=== PATIENT | male | born 1935 | race Caucasian/White ===

== ENCOUNTER → 2016-07-20 | Outpatient (CLI) | payer MEDICARE ==
--- OUTSIDE RECORDS SUMMARY | 2016-07-20 08:45 | XMS REPORT | Continuity of Care Document ---
Author Author [facility] Organization [facility] Address Unknown Phone Unavailable Care Team Providers Care Allocations Clerk Name Role Phone CHARLES CHARLTON DO PCP Insurance Providers Payer Name Policy Number Subscriber Name Relationship Wps Medicare [id number] Elina Leggett 18 Self / Same As Patient Blue Cross [facility] Supp [id number] Elina Leggett 19 Self / Same As Patient Problems No known problems or medical conditions. Medications No known medications. Social History Social History Problem Response Recorded Date/Time Recent Foreign Travel No 06/04/2014 7:49am Hospital Discharge Instructions No hospital discharge instructions. Plan of Care No plan of care. Functional Status No functional status results. Allergies, Adverse Reactions, Alerts No known allergies. Immunizations No immunization records. Vital Signs No known vital signs results. Results No known relevant diagnostic tests, laboratory data and/or discharge summary. Procedures No known history of procedures. Encounters Encounter Location Date/Time Discharged Recurring Via [facility] 07/15/14 2:16pm
--- OUTSIDE RECORDS SUMMARY | 2016-07-20 09:12 | XMS REPORT | Continuity of Care Document ---
Author Author [facility] Organization [facility] Address Unknown Phone Unavailable Care Team Providers Care Slate Picker Name Role Phone CHARLES CHARLTON DO PCP Insurance Providers Payer Name Policy Number Subscriber Name Relationship Wps Medicare [id number] Elina Leggett 19 Self / Same As Patient Blue Cross [facility] Supp [id number] Elina Leggett 19 Self / Same As [...] Encounters Encounter Location Date/Time Discharged Recurring Via [facility] 07/15/14 2:16pm
== END ==
LOC: ONC 08:42 → EDSTATUS 09:06 → LAB 09:09
PROVIDERS: ATTEND Radiology Radiation Oncology
DX: C61 Malignant neoplasm of prostate (principal)
CPT/HCPCS: 36415; 84153

== ENCOUNTER → 2017-01-17 | Outpatient (CLI) | payer MEDICARE | END | disposition home or self-care (01) | LOC: ONC 08:43 | PROVIDERS: ATTEND Radiology Radiation Oncology | DX: C61 Malignant neoplasm of prostate (principal) | CPT/HCPCS: 36415; 84153 ==

== ENCOUNTER 2020-05-31 12:51 | Emergency (ER) | payer MEDICARE ==
[~2020-05-31] VITALS: Ht 172 cm; Wt 54.4 kg
--- NOTE | 2020-05-31 13:53 | ED General ---
General Chief Complaint: Altered Mental Status Stated Complaint: FALL / AMS Nursing Triage Note: PT BROUGHT TO ED BY SON FOR ALTERED MENTAL STATUS X'S 2 WEEKS, WEAKNESS ONSET X'S 2 DAYS. SON REPORTS THE OTHER DAY PT WENT OVER THE SIDE OF HIS BED AND FELL, NO LOC OR LACERATION. SON REPORTS THAT IN THE LAST TWO WEEKS HE HAS BEEN CALLED TO PTS HOME FOR CONFUSION. SON REPORTS "HIS DAYS AND NIGHTS ARE MIXED UP". PT BROUGHT TO ROOM 02 VIA WC. Nursing Sepsis Screen: No Definite Risk Source of Information: Patient Exam Limitations: Other (AMS) History of Present Illness Date Seen by Provider: May 31, 2020 Time Seen by Provider: 13:52 Initial Comments This is a well-appearing 84-year-old male who presents to the ER via POV with his son for fall and altered mental status. Patient states he is unaware of why he is at the hospital at this time. Son states that over the past year he has been having increasing episodes of forgetfulness. However, the past 2 weeks this has significantly worsened. Reports increasing weakness over the past 2 days and decreasing appetite. On he went to lay in bed and fell on the other side. No loss of consciousness, laceration or injuries reported. Son states he has been getting up in the middle of the night, stating they need to get the wheat harvested. Son states that they have completed this several weeks ago. Patient has no physical complaints at this time. Allergies and Home Medications Allergies Coded Allergies: No Known Drug Allergies (Unverified , 05/31/20) Home Medications Cefuroxime Axetil 250 Mg Tablet, 250 MG PO BID Prescribed by: GE AZUL on 05/31/20 1490 Patient Home Medication List Home Medication List Reviewed: Yes Review of Systems Review of Systems Constitutional: no symptoms reported EENTM: no symptoms reported Respiratory: no symptoms reported Cardiovascular: no symptoms reported Gastrointestinal: no symptoms reported Genitourinary: no symptoms reported Musculoskeletal: no symptoms reported Skin: no symptoms reported Psychiatric/Neurological: Other (forgetfulness) Hematologic/Lymphatic: No Symptoms Reported Past Lmezplq-Dcvnwf-Cpqfhk Hx Patient Social History Alcohol Use: Denies Use Recreational Drug Use: No Smoking Status: Never a Smoker Recent Foreign Travel: No Contact w/Someone Who Travel: No Recent Infectious Disease Expo: No Physical Exam Vital Signs Vital Signs - First Documented 05/31/20 18:00 Pulse Ox 97 Capillary Refill : Less Than 3 Seconds Height, Weight, BMI Height: '" Weight: lbs. oz. kg; 18.00 BMI Method: General Appearance: No Apparent Distress, WD/WN Eyes: Bilateral Eye Normal Inspection, Bilateral Eye PERRL, Bilateral Eye EOMI HEENT: PERRL/EOMI, TMs Normal, Normal ENT Inspection, Pharynx Normal Neck: Full Range of Motion, Normal Inspection, Non Tender, Supple Respiratory: Chest Non Tender, Lungs Clear, Normal Breath Sounds, No Accessory Muscle Use, No Respiratory Distress Cardiovascular: Regular Rate, Rhythm, No Murmur, Normal Peripheral Pulses Gastrointestinal: Normal Bowel Sounds, Non Tender, Soft Back: Normal Inspection, No Vertebral Tenderness Extremity: Normal Capillary Refill, Normal Inspection, Normal Range of Motion Neurologic/Psychiatric: Alert, No Motor/Sensory Deficits, Normal Mood/Affect, Other (Oriented to person and place. ) Skin: Normal Color, Warm/Dry Progress/Results/Core Measures Suspected Sepsis Recent Fever Within 48 Hours: No Infection Criteria Present: None New/Unexplained Altered Menta: No Sepsis Screen: No Definite Risk SIRS Temperature: Pulse: 60 Respiratory Rate: 16 Laboratory Tests 05/31/20 13:43: White Blood Count 3.0L Blood Pressure 122 /59 Mean: 80 Laboratory Tests 05/31/20 13:43: Creatinine 0.89, Platelet Count 92L, Total Bilirubin 2.2H Results/Orders Lab Results Laboratory Tests Test 05/31/20 13:43 05/31/20 16:21 05/31/20 16:47 Range/Units White Blood Count 3.0 L 4.3-11.0 10^3/uL Red Blood Count 5.28 4.30-5.52 10^6/uL Hemoglobin 15.5 13.3-17.7 g/dL Hematocrit 47 40-54 % Mean Corpuscular Volume 89 80-99 fL Mean Corpuscular Hemoglobin 29 25-34 pg Mean Corpuscular Hemoglobin Concent 33 32-36 g/dL Red Cell Distribution Width 14.3 10.0-14.5 % Platelet Count 92 L 130-400 10^3/uL Mean Platelet Volume 10.6 9.0-12.2 fL Immature Granulocyte % (Auto) 1 % Neutrophils (%) (Auto) 71 42-75 % Lymphocytes (%) (Auto) 15 12-44 % Monocytes (%) (Auto) 13 H 0-12 % Eosinophils (%) (Auto) 0 0-10 % Basophils (%) (Auto) 0 0-10 % Neutrophils # (Auto) 2.1 1.8-7.8 10^3/uL Lymphocytes # (Auto) 0.5 L 1.0-4.0 10^3/uL Monocytes # (Auto) 0.4 0.0-1.0 10^3/uL Eosinophils # (Auto) 0.0 0.0-0.3 10^3/uL Basophils # (Auto) 0.0 0.0-0.1 10^3/uL Immature Granulocyte # (Auto) 0.0 0.0-0.1 10^3/uL Sodium Level 137 135-145 MMOL/L Potassium Level 4.6 3.6-5.0 MMOL/L Chloride Level 101 98-107 MMOL/L Carbon Dioxide Level 24 21-32 MMOL/L Anion Gap 12 5-14 MMOL/L Blood Urea Nitrogen 26 H 7-18 MG/DL Creatinine 0.89 0.60-1.30 MG/DL Estimat Glomerular Filtration Rate > 60 BUN/Creatinine Ratio 29 Glucose Level 96 70-105 MG/DL Calcium Level 8.6 8.5-10.1 MG/DL Corrected Calcium 8.8 8.5-10.1 MG/DL Total Bilirubin 2.2 H 0.1-1.0 MG/DL Aspartate Amino Transf (AST/SGOT) 60 H 5-34 U/L Alanine Aminotransferase (ALT/SGPT) 35 0-55 U/L Alkaline Phosphatase 75 40-136 U/L Total Protein 7.1 6.4-8.2 GM/DL Albumin 3.8 3.2-4.5 GM/DL Thyroid Stimulating Hormone (TSH) 1.30 0.35-4.94 UIU/ML Urine Color YELLOW Urine Clarity CLEAR Urine pH 5.5 5-9 Urine Specific [place] 1.025 H 1.016-1.022 Urine Protein TRACE H NEGATIVE Urine Glucose (UA) NEGATIVE NEGATIVE Urine Ketones 1+ H NEGATIVE Urine Nitrite NEGATIVE NEGATIVE Urine Bilirubin NEGATIVE NEGATIVE Urine Urobilinogen 4.0 < = 1.0 MG/DL Urine Leukocyte Esterase NEGATIVE NEGATIVE Urine RBC (Auto) 3+ H NEGATIVE Urine RBC 50-100 H /HPF Urine WBC 2-5 /HPF Urine Crystals NONE /LPF Urine Bacteria FEW H /HPF Urine Casts PRESENT /LPF Urine Hyaline Casts 0-2 H /LPF Urine Mucus LARGE H /LPF Urine Culture Indicated YES Urine Opiates Screen NEGATIVE NEGATIVE Urine Oxycodone Screen NEGATIVE NEGATIVE Urine Methadone Screen NEGATIVE NEGATIVE Urine Propoxyphene Screen NEGATIVE NEGATIVE Urine Barbiturates Screen NEGATIVE NEGATIVE Ur Tricyclic Antidepressants Screen NEGATIVE NEGATIVE Urine Phencyclidine Screen NEGATIVE NEGATIVE Urine Amphetamines Screen NEGATIVE NEGATIVE Urine Methamphetamines Screen NEGATIVE NEGATIVE Urine Benzodiazepines Screen NEGATIVE NEGATIVE Urine Cocaine Screen NEGATIVE NEGATIVE Urine Cannabinoids Screen NEGATIVE NEGATIVE My Orders Orders - GE AZUL DIRECTOR PHARMACOVIGILANCE Ua Culture If Indicated (05/31/20 13:24) Ct Head/Cervical Spine Wo (05/31/20 13:34) Cbc With Automated Diff (05/31/20 13:34) Comprehensive Metabolic Panel (05/31/20 13:34) Ns Iv 1000 Ml (Sodium Chloride 0.9%) (05/31/20 15:15) Thyroid Stimulating Hormone (05/31/20 15:58) Drug Screen Stat (Urine) (05/31/20 15:58) Ekg Tracing (05/31/20 15:58) Coronavirus Sars-Cov-2 So 2018 (05/31/20 15:58) Urine Culture (05/31/20 16:47) Ceftriaxone For Iv Use (Rocephin For I (05/31/20 17:45) Medications Given in ED Current Medications Medications Dose Ordered Sig/Kathie Route Start Time Stop Time Status Last Admin Dose Admin Ceftriaxone Sodium 1000 mg/ Sterile Water 10 ml @ 200 mls/hr ONCE ONCE IV 05/31/20 17:45 05/31/20 17:47 DC 05/31/20 17:49 200 MLS/HR Sodium Chloride 1,000 ml @ 100 mls/hr Q10H ONCE IV 05/31/20 15:15 05/31/20 18:00 DC 05/31/20 15:05 100 MLS/HR Vital Signs/I&O 05/31/20 05/31/20 05/31/20 13:07 13:07 18:00 Temp 36.6 36.6 36.6 Pulse 60 60 62 Resp 17 16 16 B/P (MAP) 122/59 122/59 (80) 132/61 (80) Pulse Ox 97 O2 Delivery Room Air Room Air Room Air 06/01/20 00:00 Intake Total 1000 ml Balance 1000 ml Capillary Refill : Less Than 3 Seconds Blood Pressure Mean: 80 Progress Note : Progress Note Discussed case with son who is also DPOA. States his dad is having increasing confusion, forgetfulness over the past year. However, has significantly increased over the past 2 weeks. Discuss referral to see behavioral health unit at [facility], family agreeable with referral. Discussed with [facility] and spoke with Jordan TELLO, intake completed. Will proceed with [facility] workup for possible intake on Tuesday or Tuesday. COVID test ordered for possible admission to unit. Labs reviewed and are unremarkable. Trace amount of bacteria and pyuria noted in UA with significant amount of RBC's. Hematuria could be related to straight cath collection of UA sample. However, will treat empirically for UTI. Elevated BUN noted, received 1 L of crystalloid. Reviewed findings with family and discussed intake assessment with [facility] and possible admission to unit on Tuesday or Tuesday. Family is agreeable with plan of care at this time. Scuffs return to ER for any new, concerning or worsening symptoms. Verbalized understanding. Diagnostic Imaging Diagonstic Imaging: CT Plain Films/CT/US/NM/MRI: c-spine, head Comments NAME: ELINA HUMPHREY [facility] REC#: [id number] PT STATUS: REG ER : 1935 PHYSICIAN: GE AZUL APRN ADMIT DATE: 05/31/20/ER Signed Date of Exam:05/31/20 CT HEAD/CERVICAL SPINE WO PROCEDURE: CT head and CT cervical spine without contrast. TECHNIQUE: Multiple contiguous axial images were obtained through the brain and cervical spine without the use of intravenous contrast. Sagittal and coronal reformations through the cervical spine were then performed. Auto Exposure Controls were utilized during the CT exam to meet ALARA standards for radiation dose reduction. INDICATION: Altered mental status for 2 weeks. Fall. Head and neck pain. COMPARISON: None. FINDINGS: CT head: No large acute territorial ischemia, mass, or hemorrhage. No midline shift or mass effect. Decreased attenuation is seen in the periventricular and subcortical white matter. The ventricles and cortical sulci are prominent. The basilar cisterns are patent and unremarkable. The calvarium is intact. The visualized paranasal sinuses are clear. CT cervical spine: No acute fracture or dislocation is seen in the cervical spine. No focal osseous lesions. Grade 1 anterolisthesis of C3 on C4 and C4 on C5 is noted. Vertebral body heights are well-maintained. The craniocervical junction is well-maintained. Mild degenerative changes are seen in the cervical spine with disc osteophyte complexes and uncovertebral arthropathy. Soft tissues of the neck are unremarkable. IMPRESSION: 1. No hemorrhage or focal intra-axial mass. No CT evidence of large acute territorial ischemia. 2. No acute fracture or dislocation in the cervical spine. 3. Generalized parenchymal volume loss with chronic microvascular disease. Dictated by: Dictated on workstation # [id number] Dict: 05/31/20 1404 Trans: 05/31/20 1413 [facility] [id number] Interpreted by: KATIE SILVEIRA DO Electronically signed by: KATIE SILVEIRA DO 05/31/20 1413 Departure Impression Primary Impression: Confusion Additional Impressions: Fall Urinary tract infection Weakness Disposition: 01 HOME, SELF-CARE Condition: Stable/Unchanged Departure-Patient Inst. Decision time for Depature: 16:19 Referrals: SID MIDDLETON DO Patient Instructions: Preventing Falls in the Older Adult, Altered Mental Status (DC), Urinary Tract Infection, Adult (DC) Add. Discharge Instructions: Plan: 1. Discharge home in care of son and spouse. 2. Referral to [facility] completed. They will call you to schedule a screening time. 3. Encourage small frequent meals throughout the day to help with appetite. Encourage fluid intake. 4. COVID test pending for [facility], quarantine until the hospital calls you with the results. 5. Take Ceftin 250mg by mouth twice a day for 10 days. 6. Return for any new or concerning symptoms. All discharge instructions reviewed with patient and/or family. Voiced understanding. Scripts Cefuroxime Axetil (Cefuroxime) 250 Mg Tablet 250 MG PO BID for 10 Days, #20 TAB Prov: GE AZUL APRN 05/31/20 Copy Copies To 1: SID MIDDLETON STORMY D DIRECTOR PHARMACOVIGILANCE May 31, 2020 13:53
[2020-05-31 13:57] LABS: BASOPHILS % (AUTO) 0 % (0-10); EOSINOPHILS % (AUTO) 0 % (0-10)
[2020-05-31 13:59] LABS: HEMATOCRIT 47 % (40-54); HEMOGLOBIN 15.5 g/dL (13.3-17.7); LYMPHOCYTES # (AUTO) 0.5 10^3/uL (1.0-4.0); LYMPHOCYTES % (AUTO) 15 % (12-44); MEAN CORPUSCULAR HEMOGLOBIN 29 pg (25-34); MEAN CORPUSCULAR HGB CONC 33 g/dL (32-36); MEAN CORPUSCULAR VOLUME 89 fL (80-99); MEAN PLATELET VOLUME 10.6 fL (9.0-12.2); MONOCYTES # (AUTO) 0.4 10^3/uL (0.0-1.0); MONOCYTES % (AUTO) 13 % (0-12); NEUTROPHILS # (AUTO) 2.1 10^3/uL (1.8-7.8); NEUTROPHILS % (AUTO) 71 % (42-75); PLATELET COUNT 92 10^3/uL (130-400)
--- NOTE | 2020-05-31 14:08 | Diagnostic Imaging Report ---
PROCEDURE: CT head and CT cervical spine without contrast. TECHNIQUE: Multiple contiguous axial images were obtained through the brain and cervical spine without the use of intravenous contrast. Sagittal and coronal reformations through the cervical spine were then performed. Auto Exposure Controls were utilized during the CT exam to meet ALARA standards for radiation dose reduction. INDICATION: Altered mental status for 2 weeks. Fall. Head and neck pain. COMPARISON: None. FINDINGS: CT head: No large acute territorial ischemia, mass, or hemorrhage. No midline shift or mass effect. Decreased attenuation is seen in the periventricular and subcortical white matter. The ventricles and cortical sulci are prominent. The basilar cisterns are patent and unremarkable. The calvarium is intact. The visualized paranasal sinuses are clear. CT cervical spine: No acute fracture or dislocation is seen in the cervical spine. No focal osseous lesions. Grade 1 anterolisthesis of C3 on C4 and C4 on C5 is noted. Vertebral body heights are well-maintained. The craniocervical junction is well-maintained. Mild degenerative changes are seen in the cervical spine with disc osteophyte complexes and uncovertebral arthropathy. Soft tissues of the neck are unremarkable. IMPRESSION: 1. No hemorrhage or focal intra-axial mass. No CT evidence of large acute territorial ischemia. 2. No acute fracture or dislocation in the cervical spine. 3. Generalized parenchymal volume loss with chronic microvascular disease. Dictated by: Dictated on workstation # [id number]
[2020-05-31 14:10] LABS: ALBUMIN 3.8 GM/DL (3.2-4.5); CHLORIDE 101 MMOL/L (98-107); POTASSIUM 4.6 MMOL/L (3.6-5.0); SODIUM 137 MMOL/L (135-145)
[2020-05-31 14:11] LABS: CALCIUM 8.6 MG/DL (8.5-10.1)
[2020-05-31 14:12] LABS: GLUCOSE 96 MG/DL (70-105)
[2020-05-31 14:13] LABS: TOTAL PROTEIN 7.1 GM/DL (6.4-8.2)
[2020-05-31 14:14] LABS: CARBON DIOXIDE 24 MMOL/L (21-32)
[2020-05-31 14:15] LABS: BILIRUBIN,TOTAL 2.2 MG/DL (0.1-1.0)
[2020-05-31 14:16] LABS: ALKALINE PHOSPHATASE 75 U/L (40-136); CREATININE SERUM 0.89 MG/DL (0.60-1.30); GFR ESTIMATED > 60
[2020-05-31 14:17] LABS: BUN/CREATININE RATIO 29
[2020-05-31 14:19] LABS: ALANINE AMINOTRANSFERASE 35 U/L (0-55)
[2020-05-31] MEDS ORDERED: NS IV 1000 ML 1,000 ML IV ONE (15:15)
--- NOTE | 2020-05-31 16:02 | NUR ---
ASSUMED CARE OF PTBlake CAROLINA REPORTS TALKING TO HIS SON VIA PHONE.
--- NOTE | 2020-05-31 16:30 | NUR ---
WARM BLANKET GIVEN TO THE PT.
[2020-05-31 17:03] LABS: BILIRUBIN,URINE NEGATIVE (NEGATIVE); CLARITY,URINE CLEAR; COLOR,URINE YELLOW; GLUCOSE, URINE (UA) NEGATIVE (NEGATIVE); KETONES,URINE 1+ (NEGATIVE); LEUKOCYTE ESTERASE ,URINE NEGATIVE (NEGATIVE); NITRITE,URINE NEGATIVE (NEGATIVE); PH,URINE 5.5 (5-9); PROTEIN,URINE TRACE (NEGATIVE)
[2020-05-31 17:15] LABS: BACTERIA,URINE FEW /HPF; HYALINE CASTS, URINE 0-2 /LPF; RBC,URINE 50-100 /HPF
[2020-05-31 17:23] LABS: AMPHETAMINE SCREEN, URINE NEGATIVE (NEGATIVE); BARBITURATE SCREEN URINE NEGATIVE (NEGATIVE); BENZODIAZEPINES SCREEN URINE NEGATIVE (NEGATIVE); CANNABINOID SCREEN, URINE NEGATIVE (NEGATIVE); COCAINE SCREEN URINE NEGATIVE (NEGATIVE); METHADONE STAT NEGATIVE (NEGATIVE); METHAMPHETAMINE SCREEN URINE S NEGATIVE (NEGATIVE); OPIATE SCREEN URINE NEGATIVE (NEGATIVE); OXYCODONE STAT NEGATIVE (NEGATIVE); PROPOXYPHENE STAT NEGATIVE (NEGATIVE); TRICYCLIC ANTIDEPRESSANTS SCRE NEGATIVE (NEGATIVE)
--- NOTE | 2020-05-31 17:33 | NUR ---
STORMY IN WAITING ROOM TALKING TO THE SON AT THIS TIME.
[2020-05-31] MEDS ORDERED: cefTRIAXone FOR IV USE 1,000 MG in WATER (STERILE) FOR INJECTION 10 ML IV ONE (17:45)
[2020-05-31] MEDS ORDERED: CEFU250T80 PO (17:54)
[2020-05-31 18:00] VITALS: BP 132/61
== END 2020-05-31 17:55 | disposition home or self-care (01) ==
LOC: ER 12:51 → EDUNIT# 12:51 → ER 17:55
DX: R41.0 Disorientation, unspecified (principal); N39.0 Urinary tract infection, site not specified; R53.1 Weakness; U07.1 COVID-19
CPT/HCPCS: 70450; 72125; 80053; 80306; 81000; 84443; 85025; 87088; 99284; U0002; 36415; 87635; 93005

== ENCOUNTER 2020-06-01 15:17 | Inpatient (IN) | payer MEDICARE ==
[~2020-06-01] VITALS: Ht 177.8 cm; Wt 65.9 kg
[~2020-06-01 15:17] MED LIST: CEFU250T80 PO
[2020-06-01] MEDS ORDERED: NS IV 500 ML 500 ML IV ONE (16:04)
[2020-06-01 16:13] LABS: BASOPHILS % (AUTO) 0 % (0-10); EOSINOPHILS % (AUTO) 0 % (0-10)
--- NOTE | 2020-06-01 16:13 | ED General ---
General Chief Complaint: General Problems/Pain Stated Complaint: WEAKNESS Source of Information: Patient Exam Limitations: Physical Impairments History of Present Illness Date Seen by Provider: Jun 01, 2020 Time Seen by Provider: 15:40 Initial Comments Brought in by family for worsening weakness. Seen yesterday for the same and has been set up for evaluation to [facility]. That is post to occur over the next 1 to 2 days. Today, family reports that he was increasingly weak and now he has a fever. Was evaluated for COVID- 19 yesterday but that is pending. Patient denies pain, nausea, vomiting but does report chills and weakness. Timing/Duration: 2-3 Days, Getting Worse Severity: Moderate Associated Systoms: No Chest Pain; Cough, Fever/Chills, Loss of Appetite; No Nausea/Vomiting, No Shortness of Air; Weakness Allergies and Home Medications Allergies Coded Allergies: No Known Drug Allergies (Unverified , 05/31/20) Home Medications Cefuroxime Axetil 250 Mg Tablet, 250 MG PO BID Prescribed by: GE AZUL on 05/31/20 3074 Patient Home Medication List Home Medication List Reviewed: Yes Review of Systems Review of Systems Constitutional: see HPI, chills, fever, weakness EENTM: no symptoms reported Respiratory: cough (Mild); No short of breath Cardiovascular: no symptoms reported Gastrointestinal: no symptoms reported Genitourinary: no symptoms reported Musculoskeletal: No muscle pain; muscle weakness Skin: no symptoms reported Psychiatric/Neurological: See HPI All Other Systems Reviewed Negative Unless Noted: Yes Past Rzghidt-Cktqwm-Gbfyac Hx Past Med/Social Hx: Reviewed Nursing Past Med/Soc Hx Patient Social History Alcohol Use: Denies Use Recreational Drug Use: No Smoking Status: Never a Smoker Recent Foreign Travel: No Contact w/Someone Who Travel: No Past Medical History Surgeries: Yes Pacemaker Respiratory: No Cardiac: Yes Irregular Heartbeat Neurological: Yes Dementia Family Medical History Reviewed Nursing Family Hx No Pertinent Family Hx Physical Exam-Suspected Sepsis Physical Exam Vital Signs Vital Signs - First Documented 06/01/20 17:00 Temp 37.6 Pulse 69 Resp 28 B/P (MAP) 58/ Pulse Ox 98 O2 Delivery Nasal Cannula O2 Flow Rate 3.00 Capillary Refill : Height, Weight, BMI Height: '" Weight: lbs. oz. kg; 18.00 BMI Method: General Appearance: WD/WN, Mild Distress (Weakness) HEENT: PERRL/EOMI, Other (Mucous membranes dry) Neck: Non Tender, Supple Respiratory: Lungs Clear, Normal Breath Sounds Cardiovascular: Regular Rate, Rhythm, Other (Paced rhythm) Gastrointestinal: Non Tender, Soft Back: Normal Inspection, No CVA Tenderness, No Vertebral Tenderness Extremity: Normal Range of Motion, Non Tender Neurologic/Psychiatric: Alert, Disoriented, Motor Weakness, Other (Had to be assisted from wheelchair to bed because he was too weak) Skin: normal color, warm/dry, ecchymosis (Few ecchymotic lesions to the arms bilateral from blood draws from yesterday) Focused Exam Lactate Level 06/01/20 15:53: Lactic Acid Level 1.49 Lactic Acid Level Laboratory Tests Test 06/01/20 15:53 Lactic Acid Level 1.49 MMOL/L (0.50-2.00) Progress/Results/Core Measures Suspected Sepsis SIRS Temperature: Pulse: Respiratory Rate: Laboratory Tests 06/01/20 15:53: White Blood Count 2.6L Blood Pressure / Mean: 06/01/20 15:53: Lactic Acid Level 1.49 Laboratory Tests 06/01/20 15:53: Creatinine 0.84, INR Comment 1.5H, Platelet Count 99L, Total Bilirubin 2.0H Results/Orders Lab Results Laboratory Tests Test 06/01/20 15:50 06/01/20 15:53 Range/Units Coronavirus 2019 ([facility]) Positive H Negative White Blood Count 2.6 L 4.3-11.0 10^3/uL Red Blood Count 5.16 4.30-5.52 10^6/uL Hemoglobin 15.2 13.3-17.7 g/dL Hematocrit 47 40-54 % Mean Corpuscular Volume 90 80-99 fL Mean Corpuscular Hemoglobin 30 25-34 pg Mean Corpuscular Hemoglobin Concent 33 32-36 g/dL Red Cell Distribution Width 14.1 10.0-14.5 % Platelet Count 99 L 130-400 10^3/uL Mean Platelet Volume 10.6 9.0-12.2 fL Immature Granulocyte % (Auto) 0 % Neutrophils (%) (Auto) 67 42-75 % Lymphocytes (%) (Auto) 18 12-44 % Monocytes (%) (Auto) 15 H 0-12 % Eosinophils (%) (Auto) 0 0-10 % Basophils (%) (Auto) 0 0-10 % Neutrophils # (Auto) 1.8 1.8-7.8 10^3/uL Lymphocytes # (Auto) 0.5 L 1.0-4.0 10^3/uL Monocytes # (Auto) 0.4 0.0-1.0 10^3/uL Eosinophils # (Auto) 0.0 0.0-0.3 10^3/uL Basophils # (Auto) 0.0 0.0-0.1 10^3/uL Immature Granulocyte # (Auto) 0.0 0.0-0.1 10^3/uL Prothrombin Time 18.5 H 12.2-14.7 SEC INR Comment 1.5 H 0.8-1.4 Activated Partial Thromboplast Time 44 H 24-35 SEC D-Dimer 0.35 0.00-0.49 UG/ML Sodium Level 138 135-145 MMOL/L Potassium Level 4.0 3.6-5.0 MMOL/L Chloride Level 101 98-107 MMOL/L Carbon Dioxide Level 25 21-32 MMOL/L Anion Gap 12 5-14 MMOL/L Blood Urea Nitrogen 26 H 7-18 MG/DL Creatinine 0.84 0.60-1.30 MG/DL Estimat Glomerular Filtration Rate > 60 BUN/Creatinine Ratio 31 Glucose Level 112 H 70-105 MG/DL Lactic Acid Level 1.49 0.50-2.00 MMOL/L Calcium Level 8.4 L 8.5-10.1 MG/DL Corrected Calcium 8.6 8.5-10.1 MG/DL Total Bilirubin 2.0 H 0.1-1.0 MG/DL Aspartate Amino Transf (AST/SGOT) 63 H 5-34 U/L Alanine Aminotransferase (ALT/SGPT) 37 0-55 U/L Alkaline Phosphatase 84 40-136 U/L C-Reactive Protein High Sensitivity 6.07 H 0.00-0.50 MG/DL Total Protein 6.6 6.4-8.2 GM/DL Albumin 3.7 3.2-4.5 GM/DL Procalcitonin 0.05 <0.10 NG/ML Micro Results Microbiology 06/01/20 Influenza Types A,B Antigen (NING) - Final, Complete My Orders Orders - SPENCER MUNOZ MD Cbc With Automated Diff (06/01/20 16:04) Comprehensive Metabolic Panel (06/01/20 16:04) Blood Culture (06/01/20 16:04) Sputum Culture (06/01/20 16:04) Urinalysis (06/01/20 16:04) Urine Culture (06/01/20 16:04) Protime With Inr (06/01/20 16:04) Partial Thromboplastin Time (06/01/20 16:04) Chest 1 View, Ap/Pa Only (06/01/20 16:04) Ed Iv/Invasive Line Start (06/01/20 16:04) Vital Signs Adult Sepsis Patie Q15M (06/01/20 16:04) O2 (06/01/20 16:04) Remove Rings In Anticipation O (06/01/20 16:04) Lactic Acid Analyzer (06/01/20 16:04) Influenza A And B Antigens (06/01/20 16:04) Fibrin Degradation Products (06/01/20 16:04) Procalcitonin (Pct) (06/01/20 16:04) Hs C Reactive Protein (06/01/20 16:04) Covid 19 Inhouse Test (06/01/20 16:04) Ns Iv 500 Ml (Sodium Chloride 0.9%) (06/01/20 16:04) Dexamethasone Tablet (Decadron Tablet) (06/01/20 17:08) Convalescent Plasma (06/01/20 17:08) Abo Rh Type (06/01/20 17:08) Arterial Blood Gas (06/01/20 17:20) Vital Signs/I&O 06/01/20 17:00 Temp 37.6 Pulse 69 Resp 28 B/P (MAP) 58/ Pulse Ox 98 O2 Delivery Nasal Cannula O2 Flow Rate 3.00 Capillary Refill : Progress Note : Progress Note Seen and evaluated. Sepsis protocol initiated. We will add influenza and rapid COVID-19 testing today. Normal saline 500 mL bolus ordered. Monitor patient. 1715: Patient is noted to be Covid positive via rapid testing. Laboratory data follows that as well. I did discuss the case with Dr. Bobby and she accepts patient for admission to the hospital, inpatient status. We will initiate Decadron, convalescent plasma and remdesivir. I did discuss all of this with the patient's son who is his DPOA and reviewed risk and benefits as well as emergency use authorization and he has consented to treatment with all of these. He agrees with plan and admission. His name is Floyd Leggett and can be reached [phone]. Diagnostic Imaging Diagonstic Imaging: Xray Plain Films/CT/US/NM/MRI: chest Comments Patchy lateral infiltrates consistent with Covid 19 pneumonia Departure Communication (Admissions) Time/Spoke to Admitting Phy: 17:15 Impression Primary Impression: Pneumonia due to COVID-19 virus Disposition: ADMITTED INPATIENT Condition: Stable Admissions Decision to Admit Reason: Admit from ER (General) Decision to Admit/Date: Jun 01, 2020 Time/Decision to Admit Time: 17:15 Departure-Patient Inst. Referrals: NO,LOCAL PHYSICIAN (PCP/Family) Primary Care Physician SPENCER MUNOZ MD Jun 01, 2020 16:13
[2020-06-01 16:15] LABS: HEMATOCRIT 47 % (40-54); HEMOGLOBIN 15.2 g/dL (13.3-17.7); LYMPHOCYTES # (AUTO) 0.5 10^3/uL (1.0-4.0); LYMPHOCYTES % (AUTO) 18 % (12-44); MEAN CORPUSCULAR HEMOGLOBIN 30 pg (25-34); MEAN CORPUSCULAR HGB CONC 33 g/dL (32-36); MEAN CORPUSCULAR VOLUME 90 fL (80-99); MEAN PLATELET VOLUME 10.6 fL (9.0-12.2); MONOCYTES # (AUTO) 0.4 10^3/uL (0.0-1.0); MONOCYTES % (AUTO) 15 % (0-12); NEUTROPHILS # (AUTO) 1.8 10^3/uL (1.8-7.8); NEUTROPHILS % (AUTO) 67 % (42-75); PLATELET COUNT 99 10^3/uL (130-400); WHITE BLOOD COUNT 2.6 10^3/uL (4.3-11.0)
[2020-06-01 16:21] LABS: ALBUMIN 3.7 GM/DL (3.2-4.5)
[2020-06-01 16:22] LABS: CHLORIDE 101 MMOL/L (98-107); SODIUM 138 MMOL/L (135-145)
[2020-06-01 16:23] LABS: CALCIUM 8.4 MG/DL (8.5-10.1)
[2020-06-01 16:24] LABS: GLUCOSE 112 MG/DL (70-105); TOTAL PROTEIN 6.6 GM/DL (6.4-8.2)
[2020-06-01 16:25] LABS: CARBON DIOXIDE 25 MMOL/L (21-32); FIBRIN DEGRADATION PRODUCTS 0.35 UG/ML (0.00-0.49); INR 1.5 (0.8-1.4); PROTHROMBIN TIME PATIENT 18.5 SEC (12.2-14.7)
[2020-06-01 16:27] LABS: ALKALINE PHOSPHATASE 84 U/L (40-136)
[2020-06-01 16:28] LABS: CREATININE SERUM 0.84 MG/DL (0.60-1.30); GFR ESTIMATED > 60
[2020-06-01 16:29] LABS: BUN/CREATININE RATIO 31
[2020-06-01 16:31] LABS: ALANINE AMINOTRANSFERASE 37 U/L (0-55)
[2020-06-01] MEDS ORDERED: dexAMETHasone 6 MG TAB (DECADRON) PO STA (17:08)
[2020-06-01] MEDS ORDERED: REMDESIVIR INJ 200 MG in NS (IVPB) 210 ML IV ONE (17:30)
[2020-06-01] MEDS ORDERED: guaiFENesin/CODEINE (ROBITUSSIN AC) 10ML UDC PO PRN (17:30)
[2020-06-01] MEDS ORDERED: ONDANSETRON 4 MG/2 ML (SDV) Z0FRAN IV PRN (17:30)
[2020-06-01] MEDS ORDERED: ONDANSETRON 4 MG/5 ML ORAL SOLN (ZOFRAN) 5 ML PO PRN (17:30)
[2020-06-01] MEDS ORDERED: ACETAMINOPHEN 325 MG TABLET PO PRN (17:30)
[2020-06-01] MEDS ORDERED: CALCIUM CARBONATE 500 MG (TUMS) TAB.CHEW PO PRN (17:30)
[2020-06-01] MEDS ORDERED: REMDESIVIR INJ 100 MG in NS (IVPB) 230 ML IV SCH (17:30)
[2020-06-01] MEDS ORDERED: HYDROcodone/APAP 5 MG/325 MG (LORTAB) TAB PO PRN (17:30)
[2020-06-01] MEDS ORDERED: diphenhydrAMINE 25 MG TAB (BENADRYL) PO PRN (17:30)
--- NOTE | 2020-06-01 17:38 | Diagnostic Imaging Report ---
EXAMINATION: Chest 1 view. HISTORY: Sepsis. COMPARISON: Chest radiograph 08/22/2013. FINDINGS: Heart size and pulmonary vasculature are normal. A left-sided cardiac pacemaker is unchanged. Patchy interstitial opacities throughout the mid and lower lungs. No pleural effusion or pneumothorax. The osseous structures are intact. IMPRESSION: Patchy interstitial opacities within the mid and lower lungs may represent pulmonary edema or infection. Dictated by: Dictated on workstation # [id number]
[2020-06-01 17:43] LABS: ABG BASE EXCESS -1.3 MMOL/L (-2.5-2.5); ABG OXYGEN SATURATION 96 % (94-100); ABG PCO2 35 MMHG (35-45); ABG PH 7.43 (7.37-7.43); ABG PO2 75 MMHG (79-93); ABG TCO2 23.6 MMOL/L (21.0-31.0); ALLENS TEST POSITIVE; INSPIRED O2 3; PATIENT TEMP 36.7; VENTILATOR NO
[2020-06-01 18:12] LABS: BACTERIA,URINE NEGATIVE /HPF; BILIRUBIN,URINE NEGATIVE (NEGATIVE); CLARITY,URINE CLEAR; COLOR,URINE YELLOW; GLUCOSE, URINE (UA) NEGATIVE (NEGATIVE); KETONES,URINE NEGATIVE (NEGATIVE); LEUKOCYTE ESTERASE ,URINE NEGATIVE (NEGATIVE); NITRITE,URINE NEGATIVE (NEGATIVE); PROTEIN,URINE TRACE (NEGATIVE); RBC,URINE 50-100 /HPF
[2020-06-01 18:13] LABS: AMORPHOUS SEDIMENT,UR FEW AMOR URATES /LPF
--- NOTE | 2020-06-01 18:47 | NUR ---
[facility] CALLED THAT THEY HAVE ONE UNIT OF AB- TO GIVE PATIENT, BUT THEY ARE SHORT AND IT WILL TAKE 4 DAYS TO GET MORE.
[2020-06-01 19:40] VITALS: BP 153/65
[2020-06-01 19:42] VITALS: BP 153/68
--- NOTE | 2020-06-01 19:45 | NUR ---
ELINA HUMPHREY admitted to room 426-1, with an admitting diagnosis of COVID+, on 06/01/20 from ED via stretcher, accompanied by staff.ELINA HUMPHREY introduced to surroundings, call light, bed controls, phone, TV, temperature control, lights, meal times, smoking policy, visitor policy, side rail policy, bathrooms and showers. Patient Rights given to patient in the handbook. ELINA HUMPHREY is confused but verbalizes understanding that [facility] is not responsible for the loss or damage to any personal effects or valuables that are kept in the patients posession during their hospitalization.ELINA HUMPHREY verbalizes understanding of Interdisciplinary Patient Education. Patient and/or family were informed about the Rapid Response Team and its purpose.
[2020-06-01 20:18] VITALS: BP 153/68
[2020-06-01] MEDS ORDERED: NS IV 1000 ML 1,000 ML ONE (21:21)
[2020-06-01] MEDS ORDERED: POTASSIUM CL 10MEQ/50ML IVPB 50 ML IV ONE (21:21)
--- NOTE | 2020-06-01 21:30 | NUR ---
Pt is confused and unable to answer some admission questions and history. Called Floyd (Son and DPOA) and he answered most of the admission questions.
[2020-06-01] MEDS: SENNA W/DOCUSATE (SENOKOT S) TABLET PO SCH ×3 (21:40→22:29)
[2020-06-01] MEDS: POTASSIUM CHLORIDE INJ 10 MEQ in NS IV 1000 ML 1,000 ML IV SCH (21:47)
[2020-06-01] MEDS: ENOXAPARIN 40 MG/0.4 ML (LOVENOX) SYR SC SCH ×2 (21:48→22:29)
[2020-06-01] MEDS: MELATONIN 3 MG TABLET PO PRN (22:28)
[2020-06-02] VITALS (10 sets, daily range): BP systolic 128–153; BP diastolic 60–67
[2020-06-02 07:37] LABS: ALANINE AMINOTRANSFERASE 34 U/L (0-55); ALBUMIN 3.4 GM/DL (3.2-4.5); ALKALINE PHOSPHATASE 80 U/L (40-136); BILIRUBIN,TOTAL 1.8 MG/DL (0.1-1.0); BUN/CREATININE RATIO 30; CALCIUM 8.7 MG/DL (8.5-10.1); CARBON DIOXIDE 23 MMOL/L (21-32); CHLORIDE 104 MMOL/L (98-107); CREATININE SERUM 0.69 MG/DL (0.60-1.30); GFR ESTIMATED > 60; GLUCOSE 114 MG/DL (70-105); POTASSIUM 4.3 MMOL/L (3.6-5.0); SODIUM 138 MMOL/L (135-145); TOTAL PROTEIN 6.1 GM/DL (6.4-8.2)
--- NOTE | 2020-06-02 08:12 | History & Physical-Hospitalist ---
History of Present Illness HPI/Chief Complaint CC: Covid-19 pneumonia HPI: This is an 84yoWM who presented to the ER with severe weakness, was found to have covid-19 pneumonia, he had been having a decline in status and increased confusion the last few days and had even contemplated being admitted to the senior behavior unit but presented with neutropenia and severe weakness with fever, swabbed for Covid, rapid was positive, chest X-rays showed evidence of viral pneumonia, he was subsequently admitted, placed on Convalescent plasma and Remdesivir and Decadron and will be monitored closely in the meantime. His WBC did drop down to 1.3 today and platelet count was 91,000. He currently is doing pretty well, just very weak and had a lot of diarrhea earlier. Source: patient, RN/MD Exam Limitations: clinical condition Date Seen 06/02/20 Time Seen by a Provider: 10:00 Attending Physician Karin Bobby DO PCP No,Local Physician Referring Physician Date of Admission Jun 01, 2020 at 17:10 Home Medications & Allergies Home Medications Reviewed patient Home Medication Reconciliation performed by pharmacy medication reconciliations composite technician and/or nursing. Patients Allergies have been reviewed. Allergies Allergies Coded Allergies No Known Drug Allergies (Wysfhrarti12/28/20) Past Aqfdpbv-Dhbihc-Hvcbuj Hx Past Med/Social Hx: Reviewed Nursing Past Med/Soc Hx, Reviewed and Corrections made Patient Social History Marrital Status: single Employed/Student: retired Alcohol Use: Denies Use Recreational Drug Use: No Smoking Status: Never a Smoker Recent Foreign Travel: No Contact w/other who traveled: No Recent Infectious Disease Expo: No Immunizations Up To Date Date of Influenza Vaccine: Apr 30, 2020 Seasonal Allergies Seasonal Allergies: No Past Medical History Surgeries: Pacemaker Cardiac: Irregular Heartbeat Neurological: Dementia Family History Reviewed Nursing Family Hx No Pertinent Family Hx Review of Systems Constitutional: see HPI, weakness Gastrointestinal: diarrhea Physical Exam Physical Exam Vital Signs Vital Signs - First Documented 06/01/20 06/01/20 17:00 18:49 Temp 37.6 Pulse 69 Resp 28 B/P (MAP) 134/58 (83) Pulse Ox 98 O2 Delivery Nasal Cannula O2 Flow Rate 3.00 FiO2 94 Capillary Refill : Less Than 3 Seconds Height, Weight, BMI Height: '" Weight: lbs. oz. kg; 20.30 BMI Method: General Appearance: No Apparent Distress, Chronically ill Eyes: Right Eye Normal Inspection, Right Eye PERRL HEENT: PERRL/EOMI, Normal ENT Inspection, Pharynx Normal, Moist Mucous Membranes Neck: Full Range of Motion, Normal Inspection, Non Tender Respiratory: Chest Non Tender, Lungs Clear, Normal Breath Sounds, No Accessory Muscle Use, No Respiratory Distress Cardiovascular: Regular Rate, Rhythm, No Edema, No Gallop, No JVD, No Murmur, Normal Peripheral Pulses Gastrointestinal: Normal Bowel Sounds, No Organomegaly, No Pulsatile Mass, Non Tender, Soft Back: Normal Inspection, No CVA Tenderness, No Vertebral Tenderness Extremity: Normal Capillary Refill, Normal Inspection, Normal Range of Motion, Non Tender, No Calf Tenderness, No Pedal Edema Neurologic/Psychiatric: Alert, No Motor/Sensory Deficits, Depressed Affect, Disoriented Skin: Normal Color, Warm/Dry Lymphatic: No Adenopathy Results Results/Procedures Labs Laboratory Tests 06/01/20 15:53 06/02/20 05:30 Patient resulted labs reviewed. Assessment/Plan Admission Diagnosis Assessment: COVID-19 N/V/D Dementia Falls Fever Leukopenia Plan: COVID-19 treatment IV steroids Monitor labs closely Admission Status: Inpatient Order (span 2 midnights) Reason for Inpatient Admission: COVID-19 Diagnosis/Problems Diagnosis/Problems (1) COVID-19 (2) Pneumonia due to COVID-19 virus Status: Acute (3) Fall Status: Acute (4) Weakness Status: Acute (5) Confusion Status: Acute Clinical Quality Measures DVT/VTE Risk/Contraindication: Risk Factor Score Per Nursin RFS Level Per Nursing on Admit: 4+=Very High KARIN BOBBY DO Jun 02, 2020 08:12
[2020-06-02] MEDS: RT-ALBUTEROL INHALER HFA (VENTOLIN HFA) 18 GM IH SCH ×4 (08:13→19:31)
[2020-06-02 08:27] LABS: BASOPHILS % (AUTO) 0 % (0-10); EOSINOPHILS % (AUTO) 0 % (0-10); HEMATOCRIT 45 % (40-54); HEMOGLOBIN 14.6 g/dL (13.3-17.7); LYMPHOCYTES # (AUTO) 0.3 10^3/uL (1.0-4.0); LYMPHOCYTES % (AUTO) 19 % (12-44); MEAN CORPUSCULAR HEMOGLOBIN 29 pg (25-34); MEAN CORPUSCULAR HGB CONC 32 g/dL (32-36); MEAN CORPUSCULAR VOLUME 90 fL (80-99); MEAN PLATELET VOLUME 11.6 fL (9.0-12.2); MONOCYTES # (AUTO) 0.1 10^3/uL (0.0-1.0); MONOCYTES % (AUTO) 10 % (0-12); NEUTROPHILS % (AUTO) 71 % (42-75); PLATELET COUNT 91 10^3/uL (130-400); WHITE BLOOD COUNT 1.3 10^3/uL (4.3-11.0)
[2020-06-02 08:30] LABS: ABSOLUTE RETIC # 34 10e9/uL (24-90); RETICULOCYTE % 0.69 % (0.50-2.40)
[2020-06-02 09:02] LABS: BAND NEUTROPHILS 4 %; BASOPHILS % (MANUAL) 0 %; EOSINOPHILS % (MANUAL) 0 %; LYMPHOCYTES % (MANUAL) 14 %; MONOCYTES % (MANUAL) 11 %; NEUTROPHILS % (MANUAL) 71 %; RBC MORPH NORMAL
[2020-06-02] MEDS: SENNA W/DOCUSATE (SENOKOT S) TABLET PO SCH ×2 (09:10→20:13)
[2020-06-02] MEDS: ENOXAPARIN 40 MG/0.4 ML (LOVENOX) SYR SC SCH ×2 (09:13→20:13)
[2020-06-02] MEDS ORDERED: REMDESIVIR INJ 200 MG in NS (IVPB) 210 ML IV ONE (12:30)
[2020-06-02] MEDS: POTASSIUM CHLORIDE INJ 10 MEQ in NS IV 1000 ML 1,000 ML IV SCH (13:01)
[2020-06-02] MEDS ORDERED: SOTA80TA62 PO ×2 (14:02)
[2020-06-02] MEDS ORDERED: SIMV20TA26 PO (14:02)
[2020-06-02] MEDS ORDERED: APIX5TAB PO (14:02)
[2020-06-02] MEDS ORDERED: MULT-1029 PO (14:02)
[2020-06-02] MEDS ORDERED: CETI10TA49 PO (14:02)
[2020-06-02] MEDS ORDERED: CEFU250T80 PO (14:02)
--- NOTE | 2020-06-02 14:03 | NUR ---
UNABLE TO REACH THE PT AT THIS TIME, THEREFORE I CALLED HIS SON/DOPA (KATHARINE) AND WENT THRU THE EXT MED HISTORY TO COMPLETE THE MED REC KATHARINE HAD ALL THE PATIENTS MED BOTTLES WITH HIM AND WAS ABLE TO VERIFY WHAT HE TAKES WELL WHEN/HOW HE TAKES EACH PT DOES GET CETIRIZINE 10MG FROM [facility] (LAST FILLED 05-12-2020 #30/60DS) AND TAKES TAB DAILY OTC MEDS: CHERYL JIMÉNEZ
[2020-06-02] MEDS ORDERED: NS IV 1000 ML 1,000 ML ONE (15:47)
--- NOTE | 2020-06-02 16:00 | NUR ---
"RD ASSESSMENT PMHx: irregular HB; dementia; PT INTERACTION: Note pt is currently in COVID isolation per chart review. Note all diet information for nutrition assessment is per Felix RN or per chart review. Felix states current appetite appears poor. Note pt has refused 3meals, and has PO intake 75% x1meal, per chart review. Felix states no issues with nausea, vomiting, constipation, or diarrhea that she is aware of. Note no BM has been recorded, and pt currently on bowel regimen of senna BID, per chart review. Note unable to determine recent wt hx, per chart review. ABNORMAL NUTRITION-RELATED LAB VALUES LOW: Pro 6.1; HIGH: BUN 21; glu 114; bili 1.8; AST 54; Est. kcal needs: 3904-5488 kcal | 30-35 kcal/kg Est. Pro needs: 64-77 g Pro | 1.0-1.2 g Pro/kg PES STATEMENT: Inadequate oral intake (NI-2.1) related to loss of appetite, as evidenced by chart review, communication with RN, and pt refusing 3meals. INTERVENTION: Continue with current diet order of Regular diet. Continue with current supplementation order of Ensure Enlive with meals TID, for increased kcal intake. Provides 350 kcal and 20 g Pro per serving. Would encourage pt to eat when able. Will continue to follow and reassess as pt needs, intake, and status change. Bjorn Ferris, MS RD LD [phone] cell"
[2020-06-02] MEDS: RT-ALBUTEROL INHALER HFA (VENTOLIN HFA) 18 GM IH PRN (19:30)
[2020-06-02] MEDS: MELATONIN 3 MG TABLET PO PRN (22:04)
[2020-06-03] VITALS (7 sets, daily range): BP systolic 124–161; BP diastolic 59–83
[2020-06-03] MEDS: LORazepam INJ 2 MG/ML (ATIVAN) VIAL IVP PRN (02:16)
[2020-06-03] MEDS: HALOPERIDOL 5 MG/ML (HALDOL) VIAL IM PRN (05:22)
[2020-06-03] MEDS: POTASSIUM CHLORIDE INJ 10 MEQ in NS IV 1000 ML 1,000 ML IV SCH ×3 (05:24→21:05)
[2020-06-03 06:31] LABS: BASOPHILS % (AUTO) 0 % (0-10); EOSINOPHILS % (AUTO) 0 % (0-10); MEAN CORPUSCULAR VOLUME 89 fL (80-99)
[2020-06-03 06:34] LABS: HEMATOCRIT 43 % (40-54); HEMOGLOBIN 14.2 g/dL (13.3-17.7); LYMPHOCYTES # (AUTO) 0.3 10^3/uL (1.0-4.0); LYMPHOCYTES % (AUTO) 6 % (12-44); MEAN CORPUSCULAR HEMOGLOBIN 29 pg (25-34); MEAN CORPUSCULAR HGB CONC 33 g/dL (32-36); MEAN PLATELET VOLUME 10.3 fL (9.0-12.2); MONOCYTES # (AUTO) 0.3 10^3/uL (0.0-1.0); MONOCYTES % (AUTO) 7 % (0-12); NEUTROPHILS # (AUTO) 4.2 10^3/uL (1.8-7.8); NEUTROPHILS % (AUTO) 87 % (42-75); PLATELET COUNT 112 10^3/uL (130-400); WHITE BLOOD COUNT 4.9 10^3/uL (4.3-11.0)
[2020-06-03 06:57] LABS: ALBUMIN 3.3 GM/DL (3.2-4.5)
[2020-06-03 06:58] LABS: CHLORIDE 107 MMOL/L (98-107); POTASSIUM 4.1 MMOL/L (3.6-5.0); SODIUM 140 MMOL/L (135-145)
[2020-06-03 06:59] LABS: CALCIUM 8.2 MG/DL (8.5-10.1)
[2020-06-03 07:00] LABS: GLUCOSE 88 MG/DL (70-105); TOTAL PROTEIN 5.7 GM/DL (6.4-8.2)
[2020-06-03 07:01] LABS: CARBON DIOXIDE 24 MMOL/L (21-32)
[2020-06-03 07:02] LABS: BILIRUBIN,TOTAL 1.5 MG/DL (0.1-1.0)
[2020-06-03 07:03] LABS: ALKALINE PHOSPHATASE 66 U/L (40-136)
[2020-06-03 07:04] LABS: CREATININE SERUM 0.67 MG/DL (0.60-1.30); GFR ESTIMATED > 60
[2020-06-03 07:05] LABS: BUN/CREATININE RATIO 30
[2020-06-03 07:07] LABS: ALANINE AMINOTRANSFERASE 33 U/L (0-55)
--- NOTE | 2020-06-03 07:10 | NUR ---
pt is very agitated and combative at this time. pt will not do breathing tx. pt is very confused on what is going on. Addendum: 06/03/20 at 0840 by BAKARI SNOW RT Amended: Links added.
[2020-06-03] MEDS ORDERED: WATER (STERILE) FOR INJECTION 10 ML ONE ×2 (07:49→13:01)
[2020-06-03] MEDS: ZIPRASIDONE 20 MG INJ (GEODON) VIAL IM PRN (08:07)
[2020-06-03] MEDS: ENOXAPARIN 40 MG/0.4 ML (LOVENOX) SYR SC SCH (08:08)
[2020-06-03] MEDS: SENNA W/DOCUSATE (SENOKOT S) TABLET PO SCH ×2 (08:08→20:56)
[2020-06-03] MEDS: RT-ALBUTEROL INHALER HFA (VENTOLIN HFA) 18 GM IH SCH ×3 (08:39→15:13)
--- NOTE | 2020-06-03 08:41 | Progress Note - Hospitalist ---
Subjective HPI/CC On Admission Date Seen by Provider: Jun 03, 2020 Time Seen by Provider: 10:00 CC: Covid-19 pneumonia HPI: This is an 84yoWM who presented to the ER with severe weakness, was found to have covid-19 pneumonia, he had been having a decline in status and increased confusion the last few days and had even contemplated being admitted to the senior behavior unit but presented with neutropenia and severe weakness with fever, swabbed for Covid, rapid was positive, chest X-rays showed evidence of viral pneumonia, he was subsequently admitted, placed on Convalescent plasma and Remdesivir and Decadron and will be monitored closely in the meantime. His WBC did drop down to 1.3 today and platelet count was 91,000. He currently is doing pretty well, just very weak and had a lot of diarrhea earlier. Subjective/Events-last exam Called Femi quintanilla in law at her requests and updated her on the findings an diagnosis of delirium and it included a 15 minute conversation WC is 4.9 Platelet count 112 She will get me the living will paper work just in case coronavirus and its unpredictable nature causes any respiratory or cardiac arrest Pt was beginning to have some dementia related issues just a few months ago but overall functions at home elvia Daughter in law seems to have some unrealistic expectations so tried to reassure her Review of Systems Neurological: Confusion Focused Exam Lactate Level 06/01/20 15:53: Lactic Acid Level 1.49 Objective Exam Vital Signs Vital Signs Date Time Temp Pulse Resp B/P (MAP) Pulse Ox O2 Delivery O2 Flow Rate FiO2 06/04/20 04:30 36.4 61 20 149/71 (97) 91 High Flow N/C 5.00 06/02/20 15:47 94 Capillary Refill : Less Than 3 Seconds General Appearance: Anxious, Chronically ill, Moderate Distress Respiratory: Lungs Clear Cardiovascular: Regular Rate, Rhythm Neurologic/Psychiatric: Alert, Disoriented Results/Procedures Lab Laboratory Tests 06/03/20 06:16 Patient resulted labs reviewed. Assessment/Plan Assessment and Plan Assess & Plan/Chief Complaint Assessment: COVID-19 N/V/D Dementia Falls Fever Leukopenia Delirium Plan: COVID-19 treatment IV steroids Monitor labs closely 06/03/20: Delirium is severe Supportive care Diagnosis/Problems Diagnosis/Problems (1) COVID-19 (2) Pneumonia due to COVID-19 virus Status: Acute (3) Fall Status: Acute (4) Weakness Status: Acute (5) Confusion Status: Acute Clinical Quality Measures DVT/VTE Risk/Contraindication: Risk Factor Score Per Nursin RFS Level Per Nursing on Admit: 4+=Very High SID MIDDLETON DO Jun 03, 2020 08:41
--- NOTE | 2020-06-03 09:14 | NUR ---
JYOTSNA HUMPHREY, DAUGHTER IN LAW CALLED WITH A LOT OF QUESTIONS AND CONCERNS. SHE WANTS THE UTI TO BE A PRIORITY SINCE HE ONLY DOSE ONE DOSE OF ANTIBIOTIC IN THE EMERGENCY ROOM ON TUESDAY, THE PHARMACY WAS CLOSED SO THEY WERE UNABLE TO FILL HIS PRESCRIPTION BEFORE THEY HAD TO BRING HIM BACK TO THE EMERGENCY ROOM ON TUESDAY. (CULTURE SHOWED NO GROWTH). THE CONFUSION HE IS HAVING IS NOT HIS NORMAL. 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 HE DID START HAVING INCREASING CONFUSION AFTER TUESDAY OF LAST WEEK. HIS SON HAD TO CARRY HIM TO THE CAR ON TUESDAY AND AGAIN ON TUESDAY WHEN THEY BROUGHT HIM TO THE EMERGENCY ROOM. THEY WANT TO KNOW WHAT IS CAUSING HIS CONFUSION. SHE WOULD LIKE THE DOCTOR TO CALL HER. JYOTSNA HUMPHREY --DAUGHTER IN LAW [phone]
--- NOTE | 2020-06-03 12:53 | NUR ---
CM/SS attempted to speak to the patient's son and GREGG Barrientos to discuss patient's prior level of functioning. Floyd reports that this is a good time to talk but is short with answers. GARCIA/SS asked what the patient's home situation is. He reported he lives with his and was independent with all ADL's. GARCIA/SS inquired about the [facility] health referral. He stated "because of memory loss, Have you seen him today?" This sw stated no. He stated "Well he is not doing well at all and we are doing Living Will, so can we just do this later?". CM/SS will attempt to speak with patient's son at a later time. Addendum: 06/03/20 at 1344 by YEN WILCOX CM/SS contacted the patient's room. He answered the phone and reported he is doing okay. GARCIA/SS attempted to continue the conversation but the patient just stated "yeah I'll be there in a little bit". CM/SS kept trying to speak but patient either could not understand or didn't hear this sw and hung up the phone.
[2020-06-03] MEDS: REMDESIVIR INJ 100 MG in NS (IVPB) 230 ML IV SCH (12:59)
--- NOTE | 2020-06-03 14:02 | NUR ---
Attempted visit; pt with staff. Card Folder to follow up as able/requested. Spiritual affiliation listed as "none."
[2020-06-03] MEDS: RT-ALBUTEROL INHALER HFA (VENTOLIN HFA) 18 GM IH PRN (19:51)
[2020-06-04] VITALS (7 sets, daily range): BP systolic 105–149; BP diastolic 50–71
[2020-06-04] MEDS: ZIPRASIDONE 20 MG INJ (GEODON) VIAL IM PRN ×2 (00:18→18:32)
[2020-06-04] MEDS: RT-ALBUTEROL INHALER HFA (VENTOLIN HFA) 18 GM IH PRN (05:30)
--- NOTE | 2020-06-04 05:44 | Progress Note - Hospitalist ---
Subjective HPI/CC On Admission Date Seen by Provider: Jun 04, 2020 Time Seen by Provider: 10:00 CC: Covid-19 pneumonia HPI: This is an 84yoWM who presented to the ER with severe weakness, was found to have covid-19 pneumonia, he had been having a decline in status and increased confusion the last few days and had even contemplated being admitted to the [facility] unit but presented with neutropenia and severe weakness with fever, swabbed for Covid, rapid was positive, chest X-rays showed evidence of viral pneumonia, he was subsequently admitted, placed on Convalescent plasma and Remdesivir and Decadron and will be monitored closely in the meantime. His WBC did drop down to 1.3 today and platelet count was 91,000. He currently is doing pretty well, just very weak and had a lot of diarrhea earlier. Subjective/Events-last exam Pt actually clearing a bit of confusion Required ICU transfer and Vapotherm 35 liters at 80% Pt refusing to eat breakfast Overall stable Review of Systems General: Fatigue, Malaise Focused Exam Lactate Level Objective Exam Vital Signs Vital Signs Date Time Temp Pulse Resp B/P (MAP) Pulse Ox O2 Delivery O2 Flow Rate FiO2 06/04/20 20:10 36.8 61 20 116/50 (72) 94 Vapotherm 35.00 70.00 06/04/20 19:59 70 Capillary Refill : Less Than 3 Seconds General Appearance: No Apparent Distress, WD/WN, Anxious, Chronically ill Respiratory: Chest Non Tender, Normal Breath Sounds, No Accessory Muscle Use, No Respiratory Distress, Decreased Breath Sounds Cardiovascular: Regular Rate, Rhythm, No Edema, No Gallop, No JVD, No Murmur, Normal Peripheral Pulses Neurologic/Psychiatric: Alert, Depressed Affect, Disoriented Results/Procedures Lab Laboratory Tests 06/04/20 05:20 Patient resulted labs reviewed. Assessment/Plan Assessment and Plan Assess & Plan/Chief Complaint Assessment: COVID-19 N/V/D Dementia Falls Fever Leukopenia Delirium Plan: COVID-19 treatment IV steroids Monitor labs closely 06/03/20: Delirium is severe Supportive care 06/04/20: Delirium is clearing Monitor closely Diagnosis/Problems Diagnosis/Problems (1) COVID-19 (2) Pneumonia due to COVID-19 virus Status: Acute (3) Fall Status: Acute (4) Weakness Status: Acute (5) Confusion Status: Acute Clinical Quality Measures DVT/VTE Risk/Contraindication: Risk Factor Score Per Nursin RFS Level Per Nursing on Admit: 4+=Very High SID MIDDLETON DO Jun 04, 2020 05:44
--- NOTE | 2020-06-04 05:55 | NUR ---
Notified Dr. Bobby that pt started to desaturate around 0445. RT worked on patient and bumped his O2 from 5L high flow to 12L but pt is sats only at 90%. Received orders to do ABG, chest xray, and consult Dr. Gusman. Dr. Gusman at bedside. Received orders to put pt on vapotherm and move him to ICU 12.
[2020-06-04 06:10] LABS: BASOPHILS % (AUTO) 0 % (0-10); EOSINOPHILS % (AUTO) 0 % (0-10); HEMATOCRIT 43 % (40-54); HEMOGLOBIN 13.6 g/dL (13.3-17.7); LYMPHOCYTES # (AUTO) 0.2 10^3/uL (1.0-4.0); LYMPHOCYTES % (AUTO) 5 % (12-44); MEAN CORPUSCULAR HEMOGLOBIN 29 pg (25-34); MEAN CORPUSCULAR HGB CONC 32 g/dL (32-36); MEAN CORPUSCULAR VOLUME 90 fL (80-99); MONOCYTES # (AUTO) 0.3 10^3/uL (0.0-1.0); MONOCYTES % (AUTO) 8 % (0-12); NEUTROPHILS # (AUTO) 3.2 10^3/uL (1.8-7.8); NEUTROPHILS % (AUTO) 87 % (42-75); PLATELET COUNT 126 10^3/uL (130-400); WHITE BLOOD COUNT 3.6 10^3/uL (4.3-11.0)
--- NOTE | 2020-06-04 06:13 | NUR ---
Patient arrived to ICU room 12 at this time. Patient report from [address] [place] [address] OMER Roque. Addendum: 06/04/20 at 0640 by LUCIO BURK RN Patient note entered by this writer editor.
[2020-06-04 06:21] LABS: ALBUMIN 2.9 GM/DL (3.2-4.5); CHLORIDE 111 MMOL/L (98-107); POTASSIUM 3.8 MMOL/L (3.6-5.0); SODIUM 142 MMOL/L (135-145)
[2020-06-04 06:22] LABS: CALCIUM 7.8 MG/DL (8.5-10.1)
[2020-06-04 06:23] LABS: GLUCOSE 91 MG/DL (70-105); TOTAL PROTEIN 5.2 GM/DL (6.4-8.2)
[2020-06-04 06:24] LABS: CARBON DIOXIDE 20 MMOL/L (21-32)
[2020-06-04 06:25] LABS: BILIRUBIN,TOTAL 1.3 MG/DL (0.1-1.0)
[2020-06-04 06:26] LABS: ALKALINE PHOSPHATASE 55 U/L (40-136)
[2020-06-04 06:27] LABS: CREATININE SERUM 0.67 MG/DL (0.60-1.30); GFR ESTIMATED > 60
[2020-06-04 06:28] LABS: BUN/CREATININE RATIO 30
[2020-06-04 06:30] LABS: ALANINE AMINOTRANSFERASE 28 U/L (0-55)
[2020-06-04 06:38] LABS: ABG OXYGEN SATURATION 99 % (94-100); ABG PCO2 32 MMHG (35-45); ABG PH 7.46 (7.37-7.43); ABG PO2 96 MMHG (79-93); ABG TCO2 23.5 MMOL/L (21.0-31.0)
--- NOTE | 2020-06-04 06:42 | NUR ---
Notified Femi (daughter in law) about pt transfer to ICU. Answered all her questions.
[2020-06-04 06:49] LABS: ALLENS TEST YES-POS; INSPIRED O2 35%; VENTILATOR NO
--- NOTE | 2020-06-04 06:55 | Pulmonary Consultation ---
History of Present Illness History of Present Illness Date Seen by Provider: Jun 04, 2020 Time Seen by Provider: 06:50 Date of Admission Allergies and Home Medications Allergies Coded Allergies: No Known Drug Allergies (Unverified , 05/31/20) Home Medications Apixaban 5 Mg Tablet, 5 MG PO BID, (Reported) Cefuroxime Axetil 250 Mg Tablet, 250 MG PO BID, (Reported) FILLED 06-01-2020 #20/10 DAY SUPPLY Cetirizine HCl 10 Mg Tablet, 5 MG PO DAILY, (Reported) TAKES OF A 10MG TAB Multivit-Min/FA/Lycopene/Lut 1 Each Tablet, 1 EACH PO DAILY, (Reported) Simvastatin 20 Mg Tablet, 20 MG PO HS, (Reported) Sotalol HCl 80 Mg Tablet, 80 MG PO DAILY, (Reported) Sotalol HCl 80 Mg Tablet, 120 MG PO HS, (Reported) TAKES 1 & (80MG) TABS Past Yujhrwv-Xjzabk-Fuljnk Hx Past Med/Social Hx: Reviewed Nursing Past Med/Soc Hx, Reviewed and Corrections made Patient Social History Alcohol Use: Denies Use Recreational Drug Use: No Smoking Status: Never a Smoker Recent Foreign Travel: No Contact w/Someone Who Travel: No Recent Infectious Disease Expo: No Physical Abuse: No Sexual Abuse: No Mistreated: No Fear: No Immunizations Up To Date Date of Influenza Vaccine: Apr 30, 2020 Seasonal Allergies Seasonal Allergies: No Past Medical History Surgeries: Yes Pacemaker Respiratory: No Cardiac: Yes Irregular Heartbeat Neurological: Yes Dementia Genitourinary: No Gastrointestinal: No Musculoskeletal: No Endocrine: No HEENT: No Cancer: No Psychosocial: No Integumentary: No Family Medical History Reviewed Nursing Family Hx No Pertinent Family Hx Sepsis Event Evaluation Height, Weight, BMI Height: '" Weight: lbs. oz. kg; 20.30 BMI Method: Exam Exam Vital Signs Date Time Temp Pulse Resp B/P (MAP) Pulse Ox O2 Delivery O2 Flow Rate FiO2 06/04/20 06:20 36.0 65 27 130/56 (80) 98 Vapotherm 35.00 100.00 06/04/20 05:34 60 22 93 High Flow N/C 10.00 06/04/20 05:18 94 High Flow N/C 10.00 06/04/20 04:30 36.4 61 20 149/71 (97) 91 High Flow N/C 5.00 06/03/20 23:48 36.4 66 22 129/59 (82) 92 High Flow N/C 5.00 06/03/20 20:14 36.4 65 22 133/66 (88) 90 Nasal Cannula 5.00 06/03/20 20:13 93 Nasal Cannula 5.00 06/03/20 19:51 91 Nasal Cannula 5.00 06/03/20 15:37 36.6 70 18 137/83 (101) 90 Nasal Cannula 3.00 06/03/20 15:13 91 Nasal Cannula 3.00 06/03/20 11:17 36.6 67 20 144/65 (91) 91 Nasal Cannula 3.00 06/03/20 08:00 91 Nasal Cannula 3.00 06/03/20 08:00 36.8 69 20 124/59 (80) 91 Nasal Cannula 3.00 I & O 06/04/20 07:00 Intake Total 1050 ml Output Total 350 ml Balance 700 ml Height & Weight Height: '" Weight: lbs. oz. kg; 20.30 BMI Method: General Appearance: Anxious, Chronically ill, Moderate Distress HEENT: PERRL/EOMI, Normal ENT Inspection, Pharynx Normal, Moist Mucous Membranes Neck: Full Range of Motion, Normal Inspection, Non Tender Respiratory: Lungs Clear Cardiovascular: Regular Rate, Rhythm Capillary Refill: Less Than 3 Seconds Extremity: Normal Capillary Refill, Normal Inspection, Normal Range of Motion, Non Tender, No Calf Tenderness, No Pedal Edema Neurologic/Psychiatric: Alert, Disoriented Skin: Normal Color, Warm/Dry Lymphatic: No Adenopathy Results Lab Laboratory Tests 06/03/20 06:16 06/04/20 05:20 Assessment/Plan Assessment/Plan COVID-19 PNA with acute respiratory distress -Transfer to ICU -Start Vapotherm -Check CXR, ABG -Continue Decadron, Remdesivir -s/p 1 unit of CVP -Check BNP, PCT, and DDimer Chronic Dementia and Delirium hx of Falls CELSO RO DO Jun 04, 2020 06:55
[2020-06-04] MEDS ORDERED: LACTATED RINGERS 1,000 ML IV SCH (07:00)
--- NOTE | 2020-06-04 07:10 | Diagnostic Imaging Report ---
INDICATION: Short of air. Covid pneumonia. FINDINGS: Upright portable chest shows the heart size and vascularity to be upper normal. There is bilateral airspace disease which is worse compared to the 06/01/2020 study. No large consolidations are seen. There is no effusion or pneumothorax. IMPRESSION: Increasing bilateral infiltrates. Dictated by: Dictated on workstation # [id number]
[2020-06-04] MEDS: ENOXAPARIN 40 MG/0.4 ML (LOVENOX) SYR SC SCH (08:25)
[2020-06-04] MEDS: SENNA W/DOCUSATE (SENOKOT S) TABLET PO SCH ×2 (08:25→20:35)
--- NOTE | 2020-06-04 09:15 | Diagnostic Imaging Report ---
INDICATION: Covid positive, shortness of breath. TECHNIQUE: Single view chest 7:55 AM. CORRELATION STUDY: 06/04/2020. FINDINGS: Post sternotomy changes. Left-sided pacemaker stable. Heart size and mediastinum are unchanged. Bilateral infiltrates are present, particularly in the mid and lower lung yen, overall likely relatively stable given difference in technique. Surgical clips in the soft tissues of the neck on the right. IMPRESSION: Bilateral pulmonary infiltrates persisting, likely relatively stable from prior. The report was faxed to Infection Control by [email or web address]@9:18 AM. Dictated by: Dictated on workstation # [id number]
[2020-06-04] MEDS: RT-ALBUTEROL INHALER HFA (VENTOLIN HFA) 18 GM IH SCH ×3 (10:32→19:58)
[2020-06-04] MEDS: REMDESIVIR INJ 100 MG in NS (IVPB) 230 ML IV SCH (13:01)
[2020-06-04] MEDS: inSUlin ASPART (NovoLOG) 1 UNIT/0.01 ML (CHARGE PER UNIT) SC SCH ×2 (16:44→20:34)
[2020-06-04] MEDS: HALOPERIDOL 5 MG/ML (HALDOL) VIAL IM PRN (22:43)
[2020-06-05] MEDS ORDERED: WATER (STERILE) FOR INJECTION 10 ML ONE ×2 (00:33→03:42)
[2020-06-05] MEDS: ZIPRASIDONE 20 MG INJ (GEODON) VIAL IM PRN ×2 (00:35→04:35)
[2020-06-05 04:00] VITALS: BP 171/73
[2020-06-05] MEDS: inSUlin ASPART (NovoLOG) 1 UNIT/0.01 ML (CHARGE PER UNIT) SC SCH ×4 (06:36→21:00)
--- NOTE | 2020-06-05 06:56 | NUR ---
Patient very confused and combative during this night, patient attempting to assault nursing staff, attempting to punch, kick and bite. Family updated x 2 on this patient situation. Sitter present with patient. Patient refused to allow lab to draw am blood work. Patient became very combative with attempt.
[2020-06-05] MEDS: RT-ALBUTEROL INHALER HFA (VENTOLIN HFA) 18 GM IH SCH ×4 (07:07→19:27)
[2020-06-05] MEDS: ENOXAPARIN 40 MG/0.4 ML (LOVENOX) SYR SC SCH (09:09)
[2020-06-05] MEDS: SENNA W/DOCUSATE (SENOKOT S) TABLET PO SCH ×2 (09:09→21:00)
--- NOTE | 2020-06-05 09:11 | Pulmonary Progress Note ---
Subjective Time Seen by a Provider: 09:03 Subjective/Events-last exam Pt apppears to be doing better. Sepsis Event Evaluation Height, Weight, BMI Height: '" Weight: lbs. oz. kg; 20.30 BMI Method: Exam Exam Vital Signs Date Time Temp Pulse Resp B/P (MAP) Pulse Ox O2 Delivery O2 Flow Rate FiO2 06/05/20 07:07 93 Vapotherm 25.00 55 06/05/20 06:47 72 06/05/20 06:00 Vapotherm 35.00 55.00 06/05/20 04:00 37.0 89 25 171/73 (105) 92 Vapotherm 35.00 70.00 06/05/20 01:00 76 06/05/20 00:00 92 Vapotherm 35.00 70.00 06/04/20 22:40 36.9 76 20 142/62 (88) 93 Vapotherm 35.00 70.00 06/04/20 21:47 96 Vapotherm 35.00 70 06/04/20 20:10 36.8 61 20 116/50 (72) 94 Vapotherm 35.00 70.00 06/04/20 20:00 94 Vapotherm 35.00 70 06/04/20 19:59 94 Vapotherm 35.00 70 06/04/20 19:00 71 06/04/20 16:00 36.6 06/04/20 16:00 65 30 105/56 (72) 95 Vapotherm 35.00 100.00 06/04/20 15:06 94 Vapotherm 35.00 70 06/04/20 13:30 20 97 Vapotherm 35.00 70.00 06/04/20 12:42 63 06/04/20 12:00 71 20 124/59 (80) 97 Vapotherm 35.00 100.00 I & O 06/05/20 07:00 Intake Total 905 ml Output Total 1125 ml Balance -220 ml Height & Weight Height: '" Weight: lbs. oz. kg; 20.30 BMI Method: General Appearance: No Apparent Distress, WD/WN, Anxious, Chronically ill HEENT: PERRL/EOMI, Normal ENT Inspection, Pharynx Normal, Moist Mucous Membranes Neck: Full Range of Motion, Normal Inspection, Non Tender Respiratory: Chest Non Tender, Normal Breath Sounds, No Accessory Muscle Use, No Respiratory Distress, Decreased Breath Sounds Cardiovascular: Regular Rate, Rhythm, No Edema, No Gallop, No JVD, No Murmur, Normal Peripheral Pulses Capillary Refill: Less Than 3 Seconds Extremity: Normal Capillary Refill, Normal Inspection, Normal Range of Motion, Non Tender, No Calf Tenderness, No Pedal Edema Neurologic/Psychiatric: Alert, Depressed Affect, Disoriented Skin: Normal Color, Warm/Dry Lymphatic: No Adenopathy Results Lab Laboratory Tests 06/04/20 05:20 Assessment/Plan Assessment/Plan COVID-19 PNA with acute respiratory distress - Vapotherm -Continue Decadron, Remdesivir -s/p 1 unit of CVP -Will give 40mg of Lasix IV x 1 Chronic Dementia and Delirium hx of Falls CELSO RO DO Jun 05, 2020 09:11
[2020-06-05 09:14] VITALS: BP 134/62
[2020-06-05] MEDS ORDERED: FUROSEMIDE 40 MG/4 ML INJ (LASIX) IVP NR (09:15)
[2020-06-05] MEDS: KCL 20 MEQ TAB (K-DUR) PO NR ×2 (10:52→16:54)
[2020-06-05 12:00] VITALS: BP 109/54
[2020-06-05] MEDS: REMDESIVIR INJ 100 MG in NS (IVPB) 230 ML IV SCH (13:40)
--- NOTE | 2020-06-05 14:11 | NUR ---
Pt refused breakfast and lunch. Lots of encouragement given multiple times by two different staff members. Family called and stated they would talk with him about eating. Hamburger and fries given to pt per pts family request. Pt refused. F/C patent to DD with clear yellow urine. Refuses ensure but has been drinking some water. 1-1 sitter. Call light in reach. Cont pulse ox on.
[2020-06-05 15:43] VITALS: BP 104/57
--- NOTE | 2020-06-05 18:33 | Progress Note ---
Subjective Subjective/Events-last exam Pt had a lot of agitation overnight, today he is doing better but is somewhat sedated and per nursing does get agitated if he is bothered much. He is not eating or taking pills and he would not allow labs to be drawn this morning. Objective Exam Last Set of Vital Signs Vital Signs Date Time Temp Pulse Resp B/P (MAP) Pulse Ox O2 Delivery O2 Flow Rate FiO2 06/05/20 15:43 36.9 60 17 104/57 (73) 92 Vapotherm 25.00 65.00 06/05/20 14:38 55 Capillary Refill : Less Than 3 Seconds I&O Intake and Output 06/05/20 00:00 Intake Total 955 ml Output Total 775 ml Balance 180 ml Intake Oral 955 ml Output Urine Total 775 ml # Bowel Movements 1 General: No Acute Distress Lungs: Other (decreased air movement) Heart: Regular Rate Abdomen: Normal Bowel Sounds, Soft, No Tenderness Extremities: No Edema Neuro: Other (answers yes and no and able to state name but otherwise doesn't answer questions other than mumbling) Results/Procedures Lab Laboratory Tests 06/04/20 20:33: Glucometer 114H 06/05/20 11:23: Glucometer 106 Microbiology 06/01/20 Urine Culture - Final, Complete NO GROWTH 06/01/20 Blood Culture - Preliminary, Resulted No growth 06/01/20 Influenza Types A,B Antigen (NING) - Final, Complete Assessment/Plan Assessment/Plan (1) Pneumonia due to COVID-19 virus Status: Acute Assessment & Plan: s/p convalescent plasma, on dexamethasone and remdesevir, requiring high FiO2 (80% this morning) on vapotherm. (2) Confusion Status: Acute Assessment & Plan: Per report had some increasing confusion prior to admission but is now severe, suspect delirium due to illness. Head CT on 06/01 ER visit without acute abnormality. Discussed with [id number] Femi via phone this afternoon, will try to minimize sedating medications, have blinds open in the day and keep the room dim at night. (3) Atrial fibrillation Status: Chronic Assessment & Plan: On Eliquis and sotalol at home, not taking oral well currently, will use enoxaparin and monitor rate. Qualifiers: Qualified Codes: I48.0 - Paroxysmal atrial fibrillation (4) Weakness Status: Acute (5) COVID-19 Status: Acute (6) DVT prophylaxis Status: Acute Assessment & Plan: Enoxaparin Clinical Quality Measures DVT/VTE Risk/Contraindication: Risk Factor Score Per Nursin RFS Level Per Nursing on Admit: 4+=Very High RAUL GRAY MD Jun 05, 2020 18:32
[2020-06-05] MEDS ORDERED: ENOXAPARIN 100 MG/1 ML (LOVENOX) SYR SC SCH (18:45)
[2020-06-05 19:20] VITALS: BP 102/60
[2020-06-05] MEDS: ENOXAPARIN 80 MG/0.8 ML (LOVENOX) SYR SC SCH (19:32)
[2020-06-05] MEDS: MELATONIN 3 MG TABLET PO PRN (21:50)
[2020-06-05] MEDS: LORazepam INJ 2 MG/ML (ATIVAN) VIAL IVP PRN (21:50)
[2020-06-05] MEDS: HALOPERIDOL 5 MG/ML (HALDOL) VIAL IM PRN (22:30)
[2020-06-06] VITALS: BP 165/65
[2020-06-06] MEDS ORDERED: WATER (STERILE) FOR INJECTION 10 ML ONE (00:03)
[2020-06-06] MEDS: ZIPRASIDONE 20 MG INJ (GEODON) VIAL IM PRN (00:15)
[2020-06-06 04:32] VITALS: BP 156/70
[2020-06-06 05:47] LABS: HEMATOCRIT 43 % (40-54); HEMOGLOBIN 14.2 g/dL (13.3-17.7); WHITE BLOOD COUNT 5.1 10^3/uL (4.3-11.0)
[2020-06-06 05:48] LABS: BASOPHILS % (AUTO) 0 % (0-10); EOSINOPHILS % (AUTO) 0 % (0-10); LYMPHOCYTES # (AUTO) 0.2 10^3/uL (1.0-4.0); LYMPHOCYTES % (AUTO) 3 % (12-44); MEAN CORPUSCULAR HEMOGLOBIN 29 pg (25-34); MEAN CORPUSCULAR HGB CONC 33 g/dL (32-36); MEAN CORPUSCULAR VOLUME 89 fL (80-99); MEAN PLATELET VOLUME 10.5 fL (9.0-12.2); MONOCYTES # (AUTO) 0.4 10^3/uL (0.0-1.0); MONOCYTES % (AUTO) 9 % (0-12); NEUTROPHILS # (AUTO) 4.5 10^3/uL (1.8-7.8); NEUTROPHILS % (AUTO) 87 % (42-75); PLATELET COUNT 163 10^3/uL (130-400)
[2020-06-06 06:23] LABS: CHLORIDE 108 MMOL/L (98-107); POTASSIUM 3.6 MMOL/L (3.6-5.0); SODIUM 144 MMOL/L (135-145)
[2020-06-06 06:24] LABS: CALCIUM 8.1 MG/DL (8.5-10.1)
[2020-06-06 06:25] LABS: GLUCOSE 112 MG/DL (70-105); TOTAL PROTEIN 5.4 GM/DL (6.4-8.2)
[2020-06-06 06:26] LABS: CARBON DIOXIDE 24 MMOL/L (21-32)
[2020-06-06 06:27] LABS: BILIRUBIN,TOTAL 1.9 MG/DL (0.1-1.0)
[2020-06-06 06:28] LABS: ALKALINE PHOSPHATASE 58 U/L (40-136)
[2020-06-06 06:29] LABS: CREATININE SERUM 0.69 MG/DL (0.60-1.30); GFR ESTIMATED > 60
[2020-06-06 06:30] LABS: BUN/CREATININE RATIO 39
[2020-06-06 06:31] LABS: ALANINE AMINOTRANSFERASE 33 U/L (0-55)
[2020-06-06] MEDS: inSUlin ASPART (NovoLOG) 1 UNIT/0.01 ML (CHARGE PER UNIT) SC SCH ×4 (06:39→19:49)
[2020-06-06 07:27] LABS: NEUTROPHILS % (MANUAL) 86 %
[2020-06-06 07:28] LABS: ATYPICAL LYMPHOCYTES 1 %; BAND NEUTROPHILS 7 %; BASOPHILS % (MANUAL) 0 %; EOSINOPHILS % (MANUAL) 0 %; LYMPHOCYTES % (MANUAL) 2 %; MONOCYTES % (MANUAL) 4 %; TOXIC GRANULATION/VACUOLAZATIO 1+
[2020-06-06] MEDS: ENOXAPARIN 80 MG/0.8 ML (LOVENOX) SYR SC SCH ×2 (08:15→18:32)
[2020-06-06 08:21] VITALS: BP 142/62
[2020-06-06] MEDS: PANTOPRAZOLE 40 MG (PROTONIX) VIAL IV SCH (09:18)
[2020-06-06] MEDS: SENNA W/DOCUSATE (SENOKOT S) TABLET PO SCH ×2 (09:19→21:04)
[2020-06-06] MEDS: RT-ALBUTEROL INHALER HFA (VENTOLIN HFA) 18 GM IH SCH ×3 (09:35→19:19)
--- NOTE | 2020-06-06 09:51 | Progress Note - Hospitalist ---
Subjective HPI/CC On Admission Date Seen by Provider: Jun 06, 2020 Time Seen by Provider: 08:30 CC: Covid-19 pneumonia HPI: This is an 84yoWM who presented to the ER with severe weakness, was found to have covid-19 pneumonia, he had been having a decline in status and increased confusion the last few days and had even contemplated being admitted to the senior behavior unit but presented with neutropenia and severe weakness with fever, swabbed for Covid, rapid was positive, chest X-rays showed evidence of viral pneumonia, he was subsequently admitted, placed on Convalescent plasma and Remdesivir and Decadron and will be monitored closely in the meantime. His WBC did drop down to 1.3 today and platelet count was 91,000. He currently is doing pretty well, just very weak and had a lot of diarrhea earlier. Subjective/Events-last exam Patient is lying flat and was without complaint. He does note that my hands are cold at this juncture. He has his food next to him and does not appear that is eaten. He is on a decreased dose of Vapotherm. Review of Systems Neurological: Weakness Objective Exam Vital Signs Vital Signs Date Time Temp Pulse Resp B/P (MAP) Pulse Ox O2 Delivery O2 Flow Rate FiO2 06/06/20 09:36 90 Vapotherm 35.00 70 06/06/20 08:21 36.6 62 20 142/62 (88) Capillary Refill : Less Than 3 Seconds General Appearance: No Apparent Distress, WD/WN, Chronically ill Neck: Limited Range of Motion Respiratory: Lungs Clear, Normal Breath Sounds, No Accessory Muscle Use, No Respiratory Distress Cardiovascular: Regular Rate, Rhythm, No Edema, No Gallop Gastrointestinal: Normal Bowel Sounds, Non Tender, Soft Rectal: Deferred Back: Normal Inspection Extremity: Other (Atrophy of the left leg versus the right) Neurologic/Psychiatric: Depressed Affect, Disoriented, Other (Awakens and speaks but then just falls back to sleep) Results/Procedures Lab Laboratory Tests 06/06/20 05:30 Patient resulted labs reviewed. Imaging: Reviewed Imaging Report Assessment/Plan Assessment and Plan Assess & Plan/Chief Complaint [id number] with decreasing oxygen needs N/V/D- resolved but is somewhat anorexic Dementia-with delirium and periodic agitation currently sleeping Falls-has left lower extremity atrophy will benefit from physical therapy and further evaluation Fever-resolved Leukopenia-resolved Clinical Quality Measures DVT/VTE Risk/Contraindication: Risk Factor Score Per Nursin RFS Level Per Nursing on Admit: 4+=Very High KELVIN DEVI MD Jun 06, 2020 09:51
[2020-06-06 12:00] VITALS: BP 125/64
[2020-06-06] MEDS: REMDESIVIR INJ 100 MG in NS (IVPB) 230 ML IV SCH (12:09)
--- NOTE | 2020-06-06 14:50 | NUR ---
"RD ASSESSMENT PMHx: irregular HB, dementia; PT INTERACTION: Note pt is currently in COVID isolation, per chart review. Note all diet information for nutrition follow-up is per Theresa RN or per chart review. Theresa states current appetite appears poor. Note avg PO intake <25% meals, per chart review. Theresa states no issues with n/v/c/d that she is aware of. Note last BM was 06/04, and pt currently on bowel regimen of senna BID, per chart review. ABNORMAL NUTRITION-RELATED LAB VALUES LOW: Pro 5.4; alb 3.0; HIGH: Cl 108; BUN 27; glu 112; bili 1.9; ALT 51 Est. kcal needs: 0955-3461 kcal | 30-35 kcal/kg Est. Pro needs: 66-79 g Pro | 1.0-1.2 g Pro/kg PES STATEMENT: Inadequate oral intake (NI-2.1) related to loss of appetite as evidenced by chart review, communication with RN, and avg PO intake <25% meals. INTERVENTION: Continue with current diet order of Regular diet. Continue with current supplementation order of Ensure Enlive (vary) with meals TID. Provides 350 kcal and 20 g Pro per serving. Would encourage pt to eat when able. Will continue to follow and reassess as pt needs, intake, and status change. Bjorn Ferris MS RD LD [phone] cell"
[2020-06-06 15:14] VITALS: BP 134/71
--- NOTE | 2020-06-06 18:23 | Pulmonary Progress Note ---
Subjective Time Seen by a Provider: 12:00 Subjective/Events-last exam No complications notedl Sepsis Event Evaluation Height, Weight, BMI Height: '" Weight: lbs. oz. kg; 20.30 BMI Method: Exam Exam Vital Signs Date Time Temp Pulse Resp B/P (MAP) Pulse Ox O2 Delivery O2 Flow Rate FiO2 06/06/20 15:14 36.5 60 17 134/71 (92) 95 Vapotherm 35.00 60.00 06/06/20 14:39 91 Vapotherm 35.00 60 06/06/20 13:00 60 06/06/20 12:00 36.7 60 20 125/64 (84) 94 Vapotherm 35.00 35.00 06/06/20 09:36 90 Vapotherm 35.00 70 06/06/20 08:21 36.6 62 20 142/62 (88) 95 Vapotherm 35.00 70.00 06/06/20 08:00 95 Vapotherm 35.00 70 06/06/20 07:00 60 06/06/20 04:32 36.3 75 20 156/70 (98) 93 Vapotherm 35.00 70.00 06/06/20 01:00 67 06/06/20 00:00 36.4 82 19 165/65 (98) 90 Vapotherm 35.00 70.00 06/05/20 21:22 90 Vapotherm 35.00 70 06/05/20 20:00 95 Vapotherm 35.00 70 06/05/20 19:28 95 Vapotherm 30.00 65 06/05/20 19:20 36.9 77 19 102/60 (74) 91 Vapotherm 25.00 65.00 06/05/20 19:00 75 I & O 06/06/20 07:00 Intake Total 1250 ml Output Total 2330 ml Balance -1080 ml Height & Weight Height: '" Weight: lbs. oz. kg; 20.30 BMI Method: General Appearance: No Apparent Distress, WD/WN, Chronically ill HEENT: PERRL/EOMI, Normal ENT Inspection, Pharynx Normal, Moist Mucous Membranes Neck: Limited Range of Motion Respiratory: Lungs Clear, Normal Breath Sounds, No Accessory Muscle Use, No R espiratory Distress Cardiovascular: Regular Rate, Rhythm, No Edema, No Gallop Capillary Refill: Less Than 3 Seconds Extremity: Other (Atrophy of the left leg versus the right) Neurologic/Psychiatric: Depressed Affect, Disoriented, Other (Awakens and speaks but then just falls back to sleep) Skin: Normal Color, Warm/Dry Lymphatic: No Adenopathy Results Lab Laboratory Tests 06/06/20 05:30 Assessment/Plan Assessment/Plan COVID-19 PNA with acute respiratory distress - Vapotherm -- Titrate as tolerated -s/p Decadron, Remdesivir -s/p 1 unit of CVP Chronic Dementia and Delirium hx of Falls CELSO RO DO Jun 06, 2020 18:23
[2020-06-06 19:26] VITALS: BP 128/73
[2020-06-07] VITALS (7 sets, daily range): BP systolic 117–162; BP diastolic 51–75
[2020-06-07 03:38] LABS: BASOPHILS % (AUTO) 0 % (0-10); EOSINOPHILS % (AUTO) 0 % (0-10); HEMATOCRIT 47 % (40-54); HEMOGLOBIN 15.5 g/dL (13.3-17.7); LYMPHOCYTES # (AUTO) 0.3 10^3/uL (1.0-4.0); LYMPHOCYTES % (AUTO) 3 % (12-44); MEAN CORPUSCULAR HEMOGLOBIN 30 pg (25-34); MEAN CORPUSCULAR HGB CONC 33 g/dL (32-36); MEAN CORPUSCULAR VOLUME 90 fL (80-99); MEAN PLATELET VOLUME 10.7 fL (9.0-12.2); MONOCYTES # (AUTO) 0.6 10^3/uL (0.0-1.0); MONOCYTES % (AUTO) 8 % (0-12); NEUTROPHILS % (AUTO) 88 % (42-75); PLATELET COUNT 222 10^3/uL (130-400); WHITE BLOOD COUNT 7.9 10^3/uL (4.3-11.0)
[2020-06-07 03:47] LABS: ALBUMIN 3.2 GM/DL (3.2-4.5); CHLORIDE 107 MMOL/L (98-107); POTASSIUM 3.8 MMOL/L (3.6-5.0); SODIUM 145 MMOL/L (135-145)
[2020-06-07 03:48] LABS: CALCIUM 8.3 MG/DL (8.5-10.1)
[2020-06-07 03:49] LABS: GLUCOSE 113 MG/DL (70-105)
[2020-06-07 03:50] LABS: TOTAL PROTEIN 5.5 GM/DL (6.4-8.2)
[2020-06-07 03:51] LABS: BILIRUBIN,TOTAL 2.2 MG/DL (0.1-1.0); CARBON DIOXIDE 24 MMOL/L (21-32)
[2020-06-07 03:53] LABS: ALKALINE PHOSPHATASE 75 U/L (40-136); CREATININE SERUM 0.73 MG/DL (0.60-1.30); GFR ESTIMATED > 60
[2020-06-07 03:54] LABS: BUN/CREATININE RATIO 41
[2020-06-07 03:56] LABS: ALANINE AMINOTRANSFERASE 33 U/L (0-55)
[2020-06-07] MEDS: inSUlin ASPART (NovoLOG) 1 UNIT/0.01 ML (CHARGE PER UNIT) SC SCH ×4 (03:58→20:55)
[2020-06-07] MEDS: ENOXAPARIN 80 MG/0.8 ML (LOVENOX) SYR SC SCH ×2 (05:45→17:27)
[2020-06-07] MEDS: RT-ALBUTEROL INHALER HFA (VENTOLIN HFA) 18 GM IH SCH ×3 (07:47→21:28)
[2020-06-07] MEDS: PANTOPRAZOLE 40 MG (PROTONIX) VIAL IV SCH (08:32)
[2020-06-07] MEDS: SENNA W/DOCUSATE (SENOKOT S) TABLET PO SCH ×2 (08:34→21:21)
--- NOTE | 2020-06-07 09:57 | Progress Note - Hospitalist ---
Subjective HPI/CC On Admission Date Seen by Provider: Jun 07, 2020 Time Seen by Provider: 09:00 CC: Covid-19 pneumonia HPI: This is an 84yoWM who presented to the ER with severe weakness, was found to have covid-19 pneumonia, he had been having a decline in status and increased confusion the last few days and had even contemplated being admitted to the senior behavior unit but presented with neutropenia and severe weakness with fever, swabbed for Covid, rapid was positive, chest X-rays showed evidence of viral pneumonia, he was subsequently admitted, placed on Convalescent plasma and Remdesivir and Decadron and will be monitored closely in the meantime. His WBC did drop down to 1.3 today and platelet count was 91,000. He currently is doing pretty well, just very weak and had a lot of diarrhea earlier. Subjective/Events-last exam Patient remains weak and sleeping quite a bit of the time. Vapotherm is steady at 40%-bilirubin has increased to 2.2. He is awake and alert but slow to answer questions and seems confused Review of Systems Neurological: Weakness, Confusion Objective Exam Vital Signs Vital Signs Date Time Temp Pulse Resp B/P (MAP) Pulse Ox O2 Delivery O2 Flow Rate FiO2 06/07/20 07:47 97 Vapotherm 40.00 100 06/07/20 07:31 36.9 71 16 162/75 (104) Capillary Refill : Less Than 3 Seconds General Appearance: Chronically ill HEENT: Normal ENT Inspection Neck: Limited Range of Motion Respiratory: Lungs Clear, Normal Breath Sounds, No Accessory Muscle Use, No Respiratory Distress Cardiovascular: Regular Rate, Rhythm, No Gallop, Normal Peripheral Pulses, Sys tolic Murmur Gastrointestinal: Normal Bowel Sounds, No Organomegaly, Non Tender, Soft Extremity: No Pedal Edema, Other (Muscle atrophy left greater than right) Neurologic/Psychiatric: Other (Slow to answer questions but no gross deficits) Lymphatic: No Adenopathy Results/Procedures Lab Laboratory Tests 06/07/20 03:15 Patient resulted labs reviewed. Imaging: Reviewed Imaging Report Assessment/Plan Assessment and Plan Assess & Plan/Chief Complaint [id number] with decreasing oxygen needs Nausea still this morning with poor oral intake-order abdominal sonogram for Tuesday because of the increased total bilirubin Dementia-with delirium and periodic agitation-most likely of a longstanding Falls-has left lower extremity atrophy will benefit from physical therapy and further evaluation Fever-resolved Leukopenia-resolved Clinical Quality Measures DVT/VTE Risk/Contraindication: Risk Factor Score Per Nursin RFS Level Per Nursing on Admit: 4+=Very High KELVIN DEVI MD Jun 07, 2020 09:57
--- NOTE | 2020-06-07 12:51 | Physical Therapy Evaluation ---
PT Evaluation-General Medical Diagnosis Admission Date Jun 01, 2020 at 17:10 Medical Diagnosis: COVID 19 Onset Date: Jun 07, 2020 Therapy Diagnosis Therapy Diagnosis: weakness; abn gait Precautions Precautions/Isolations: Airborne Isolation, Fall Prevention Referral Physician: Linda Reason for Referral: Evaluation/Treatment Medical History Pertinent Medical History: Atrial Fib, Dementia Additional Medical History Leukopenia Current History Admitted with progressive weakness, AMS and COVID 19; pneumonia Reviewed History: Yes Social History Home: Single Level Current Living Status: Spouse Entry Into Home: Ramp Prior Prior Level of Function SCALE: Activities may be completed with or without assistive devices. 8-Gxikpvcacj-ztlrfyv completes the activity by him/herself with no assistance from a helper. 5-Set-up or Clean-up Assistance-helper sets up or cleans up; patient completes activity. [place] assists only prior to or following the activity. 4-Supervision or Touching Assistance-helper provides verbal cues and/or touching/steadying and/or contact guard assistance as patient completes activity. Assistance may be provided throughout the activity or intermittently. 3-Partial/Moderate Assistance-helper does LESS THAN HALF the effort. [place] lifts, holds or supports trunk or limbs, but provides less than half the effort. 2-Substantial/Maximal Assistance-helper does MORE THAN HALF the effort. [place] lifts or holds trunk or limbs and provides more than half the effort. 7-Lpnzrclza-fpqvux does ALL the effort. Patient does none of the effort to complete the activity. Or, the assistance of 2 or more helpers is required for the patient to complete the activity. If activity was not attempted, code reason: 7-Patient Refused. 9-Not Applicable-not attempted and the patient did not perform the activity before the current illness, exacerbation or injury. 10-Not Attempted due to Environmental Limitations-(lack of equipment, weather restraints, etc.). 88-Not Attempted due to Medical Conditions or Safety Concerns. Bed Mobility: 6 Transfers (B,C,W/C): 6 Gait: 6 Indoor Mobility (Ambulation): Independent Stairs: Independent PT Evaluation-Current Subjective "I really feel good." Agrees to get up to the chair. Pain Numeric Pain Scale: 0-No Pain Location: No Pain Reported Objective Patient Orientation: Person, Confused, Situation ROM/Strength ROM Lower Extremities WFL Strength Lower Extremities grossly 3/5 Integumentary/Posture Integumentary refer to nursing note.s Bowel Incontinence: Yes Bladder Incontinence: Yes Posture rounded shoulders. Neuromuscular (Tone, Coordination, Reflexes) intact and functional Sensory Vision: Wears Glasses Hearing: Hearing Aid/Aides Hand Dominance: Right Sensation Right Lower Extremit: Intact Sensation Left Lower Extremity: Intact Transfers Roll Left to Right (QC): 3 Lying to Sitting/Side of Bed(Q: 3 Sit to Stand (QC): 3 Chair/Fku-ae-Lpwit Xfer(QC): 3 Min assist with functional transfers with cues to sequence and initiate. Sub sequent sit to stand was better and was CGA. Pt stood 1 minute as pericare was performed with CGA to stand and dependent pericare. Pt up in chair post treatment with oxygen in situe and chair alarm activated. Gait Does the Patient Walk?: Yes Balance Sitting Static: Good Sitting Dynamic: Good Standing Static: Fair Standing Dynamic: Fair Assessment/Needs Admitted with COVID, presents with functional strength and balance deficits and decreased activity tolerance. Will benefit from skilled PT to address mobility and allow him to return home as before. Rehab Potential: Good PT Jail Goals Jail Goals PT Employee Health Nurse Goals Time Frame: Jun 13, 2020 Sit to Lying (QC): 6 Lying-Sitting on Side/Bed(QC): 6 Sit to Stand (QC): 6 Chair/Qei-ah-Vtajo Xfer(QC): 6 Walk 150 ft (QC): 6 PT Plan Problem List Problem List: Activity Tolerance, Functional Strength, Safety, Balance, Gait, Transfer, Bed Mobility Treatment/Plan Treatment Plan: Continue Plan of Care Treatment Plan: Bed Mobility, Education, Functional Activity Lindsey, Functional Strength, Gait, Safety, Therapeutic Exercise, Transfers Treatment Duration: Jun 13, 2020 Frequency: 6 times per week Estimated Hrs Per Day: .25 hour per day Safety Risks/Education Patient Education: Transfer Techniques, Safety Issues Teaching Recipient: Patient Teaching Methods: Discussion Response to Teaching: Reinforcement Needed Discharge Recommendations Therapy Discharge Recommendati: Post Acute PT Time/GCodes Time In: 1050 Time Out: 1117 Total Billed Treatment Time: 27 Total Billed Treatment visit EVM 15 FA 12 GLENNA RODRIGUEZ PT Jun 07, 2020 12:51
[2020-06-08] VITALS (10 sets, daily range): BP systolic 98–117; BP diastolic 39–62
--- NOTE | 2020-06-08 05:00 | NUR ---
PT MOVED TO ROOM [facility] TO HAVE CONT MONITORING AVAILABLE BY MT. PT IS VERY RESTLESS ET TAKES O2 VIA VAPOTHERM ET PULSE OXIMETRY OFF FREQUENTLY. SAO2 SHOWED TO BE LOW 70S WHEN PULSE APPLIED ET PT ON ROOM AIR. PT VOICED UNDERSTANDING OF NEED TO MONITOR. PT REMAINS FORGETFUL.
[2020-06-08] MEDS: inSUlin ASPART (NovoLOG) 1 UNIT/0.01 ML (CHARGE PER UNIT) SC SCH ×4 (05:58→20:16)
[2020-06-08] MEDS: ENOXAPARIN 80 MG/0.8 ML (LOVENOX) SYR SC SCH ×2 (06:01→20:34)
[2020-06-08] MEDS: RT-ALBUTEROL INHALER HFA (VENTOLIN HFA) 18 GM IH SCH ×4 (07:41→19:28)
--- NOTE | 2020-06-08 07:54 | Diagnostic Imaging Report ---
CHEST 1 VIEW, AP/PA ONLY Indication: COVID positive. Hypoxia Comparison: 06/04/2020 Findings: No change in left mid and lower lung zone and right basilar consolidations. No pleural effusion or pneumothorax. Stable cardiomegaly with left pectoral transvenous pacemaker. Impression: 1. No change in bilateral pulmonary consolidations. Report was faxed to Dario/RN Infection Control by peter at 7:52AM. Dictated by: Dictated on workstation # [id number]
--- NOTE | 2020-06-08 08:38 | Progress Note - Hospitalist ---
Subjective HPI/CC On Admission Date Seen by Provider: Jun 08, 2020 Time Seen by Provider: 07:15 CC: Covid-19 pneumonia HPI: This is an 84yoWM who presented to the ER with severe weakness, was found to have covid-19 pneumonia, he had been having a decline in status and increased confusion the last few days and had even contemplated being admitted to the senior behavior unit but presented with neutropenia and severe weakness with fe kandice, swabbed for Covid, rapid was positive, chest X-rays showed evidence of viral pneumonia, he was subsequently admitted, placed on Convalescent plasma and Remdesivir and Decadron and will be monitored closely in the meantime. His WBC did drop down to 1.3 today and platelet count was 91,000. He currently is doing pretty well, just very weak and had a lot of diarrhea earlier. Subjective/Events-last exam Patient is agitated and was moved to the ICU because of his agitation not keeping his O2 on. Morning he is agitated but reasonable talking and much more alert than he has been over the last several days. Chest x-ray continues to show right lower lobe and left infiltrates that are rather dense. Review of Systems Neurological: Confusion Objective Exam Vital Signs Vital Signs Date Time Temp Pulse Resp B/P (MAP) Pulse Ox O2 Delivery O2 Flow Rate FiO2 06/08/20 07:41 100 Vapotherm 40.00 100 06/08/20 07:13 37.0 06/08/20 07:00 70 06/08/20 06:00 11 116/39 (64) Capillary Refill : NONE General Appearance: Chronically ill, Other (Confused) HEENT: Normal ENT Inspection Neck: Supple Respiratory: Normal Breath Sounds, No Accessory Muscle Use, No Respiratory Distress Cardiovascular: Regular Rate, Rhythm Gastrointestinal: Soft Rectal: Deferred Extremity: Other (Cachectic) Neurologic/Psychiatric: Alert, Disoriented Skin: Warm/Dry Results/Procedures Lab Patient resulted labs reviewed. Imaging: Reviewed Imaging Report Assessment/Plan Assessment and Plan Assess & Plan/Chief Complaint [id number] with decreasing oxygen needs-however it appears that there is some consolidation on chest x-ray we will check procalcitonin Nausea still this morning with poor oral intake-order abdominal sonogram for Tuesday because of the increased total bilirubin Dementia-with delirium and periodic agitation-most likely of a longstanding-s table Falls-has bilateral lower extremity atrophy will benefit from physical therapy and further evaluation Fever-resolved Leukopenia-resolved Will most likely need placement at the time of discharge Clinical Quality Measures DVT/VTE Risk/Contraindication: Risk Factor Score Per Nursin RFS Level Per Nursing on Admit: 4+=Very High KELVIN DEVI MD Jun 08, 2020 08:38
[2020-06-08] MEDS: PANTOPRAZOLE 40 MG (PROTONIX) VIAL IV SCH (09:05)
[2020-06-08] MEDS: SENNA W/DOCUSATE (SENOKOT S) TABLET PO SCH ×2 (09:05→19:32)
[2020-06-09 00:04] VITALS: BP 122/57
[2020-06-09] MEDS: inSUlin ASPART (NovoLOG) 1 UNIT/0.01 ML (CHARGE PER UNIT) SC SCH ×4 (06:24→20:36)
[2020-06-09] MEDS: ENOXAPARIN 80 MG/0.8 ML (LOVENOX) SYR SC SCH (06:45)
[2020-06-09] MEDS: RT-ALBUTEROL INHALER HFA (VENTOLIN HFA) 18 GM IH SCH ×4 (07:12→18:38)
[2020-06-09 07:54] VITALS: BP 120/57
[2020-06-09] MEDS: PANTOPRAZOLE 40 MG (PROTONIX) VIAL IV SCH (08:50)
--- NOTE | 2020-06-09 09:02 | Diagnostic Imaging Report ---
INDICATION: Elevated liver enzymes, hyperbilirubinemia TECHNIQUE: Multiple grayscale sonographic images were obtained of the right upper quadrant of the abdomen. CORRELATION STUDY: None FINDINGS: LIVER: There is uniform echotexture within the visualized portions of the liver. There is normal, hepatopedal direction of flow within the main portal vein. Liver length 15.3 cm. GALLBLADDER: There does appear to be echogenic foci, likely gallstone of the gallbladder neck. No definitive gallbladder wall thickening or pericholecystic fluid. COMMON BILE DUCT: Obscured and cannot cannot be well visualized. Overt bile duct dilatation does not however appear to be suggested. PANCREAS: Largely obscured and not well visualized. AORTA/IVC: Obscured. RIGHT KIDNEY: 10.0 x 5.1 x 4.9 cm. No hydronephrosis. OTHER: None. IMPRESSION: 1. Probable stone at the gallbladder neck. No definitive gallbladder wall thickening or pericholecystic fluid. Biliary tree cannot be definitively visualized. However, no evidence of overt bile duct dilatation. If further assessment desired, nuclear medicine hepatobiliary imaging or MRCP would be recommended Dictated by: Dictated on workstation # [id number]
[2020-06-09] MEDS: SENNA W/DOCUSATE (SENOKOT S) TABLET PO SCH ×2 (09:50→20:43)
--- NOTE | 2020-06-09 13:30 | Progress Note ---
Subjective Subjective/Events-last exam Afebrile, more alert today, able to answer several questions appropriately. Denies feeling short of breath or any other concerns. Objective Exam Last Set of Vital Signs Vital Signs Date Time Temp Pulse Resp B/P (MAP) Pulse Ox O2 Delivery O2 Flow Rate FiO2 06/09/20 11:03 94 Vapotherm 40.00 90 06/09/20 07:54 35.5 80 22 120/57 (78) Capillary Refill : Less Than 3 Seconds I&O Intake and Output 06/09/20 00:00 Intake Total 400 ml Output Total 100 ml Balance 300 ml Intake Oral 400 ml Output Urine Total 100 ml # Voids 2 # Urine Diapers 3 # Bowel Movements 2 General: Alert, No Acute Distress Lungs: Other (decreased air movement throughout) Heart: Regular Rate Abdomen: Normal Bowel Sounds, Soft Extremities: No Edema Neuro: Other (oriented to self and knows he is in the hospital and that he has covid, states he doesn't keep track of year) Psych/Mental Status: Mood NL Results/Procedures Lab Laboratory Tests 06/08/20 16:09: Glucometer 126H 06/08/20 20:04: Glucometer 112H 06/09/20 06:14: Glucometer 86 06/09/20 10:52: Glucometer 108 Microbiology 06/04/20 MRSA Screen - Final, Complete MRSA not isolated 06/01/20 Urine Culture - Final, Complete NO GROWTH 06/01/20 Blood Culture - Final, Complete No growth Assessment/Plan Assessment/Plan (1) Pneumonia due to COVID-19 virus Status: Acute Assessment & Plan: s/p convalescent plasma, on dexamethasone (day 8) and s/p remdesevir, requiring high FiO2 (90% this morning) on vapotherm. (2) Confusion Status: Acute Assessment & Plan: 06/05 Per report had some increasing confusion prior to admission but is now severe, suspect delirium due to illness. Head CT on 06/01 ER visit without acute abnormality. Discussed with [id number] Femi via phone this afternoon, will try to minimize sedating medications, have blinds open in the day and keep the room dim at night. 06/09- improved, still has some trouble at times, but this morning is alert and oriented to self, location and reason for hospitalization, has prn antipsychotics ordered, but has not needed since 06/06 (3) Atrial fibrillation Status: Chronic Assessment & Plan: On Eliquis and sotalol at home, not taking oral well initially and was on therapeutic enoxaparin, will resume home meds today. Qualifiers: Qualified Codes: I48.0 - Paroxysmal atrial fibrillation (4) Weakness Status: Acute Assessment & Plan: PT (5) COVID-19 Status: Acute (6) Elevated bilirubin Status: Acute Assessment & Plan: With only mildly elevated AST. Abdominal US today. (7) DVT prophylaxis Status: Acute Assessment & Plan: Eliquis Clinical Quality Measures DVT/VTE Risk/Contraindication: Risk Factor Score Per Nursin RFS Level Per Nursing on Admit: 4+=Very High RAUL GRAY MD Jun 09, 2020 13:30
--- NOTE | 2020-06-09 13:45 | Physical Therapy Daily Note ---
PT Daily Note-Current Subjective Patient is in bed and stated, "I'm going home. I'm getting out of here." Mental Status Patient Orientation: Confused Attachments: Oxygen Transfers SCALE: Activities may be completed with or without assistive devices. 8-Yxvgwnsaos-vtxbmbv completes the activity by him/herself with no assistance from a helper. 5-Set-up or Clean-up Assistance-helper sets up or cleans up; patient completes activity. [place] assists only prior to or following the activity. 4-Supervision or Touching Assistance-helper provides verbal cues and/or touching/steadying and/or contact guard assistance as patient completes activi ty. Assistance may be provided throughout the activity or intermittently. 3-Partial/Moderate Assistance-helper does LESS THAN HALF the effort. [place] lifts, holds or supports trunk or limbs, but provides less than half the effort. 2-Substantial/Maximal Assistance-helper does MORE THAN HALF the effort. [place] lifts or holds trunk or limbs and provides more than half the effort. 9-Icmnhaxxy-tijbqp does ALL the effort. Patient does none of the effort to complete the activity. Or, the assistance of 2 or more helpers is required for the patient to complete the activity. If activity was not attempted, code reason: 7-Patient Refused. 9-Not Applicable-not attempted and the patient did not perform the activity before the current illness, exacerbation or injury. 10-Not Attempted due to Environmental Limitations-(lack of equipment, weather restraints, etc.). 88-Not Attempted due to Medical Conditions or Safety Concerns. Roll Left & Right (QC): 5 Exercises Supine Ex: Ankle pumps, Heel Slides, Straight leg raise, Hip abd/add Supine Reps: 12 Assessment Patient declined OOB to chair. Alarm activated. PT to increase activity as tolerated by patient. PT [facility] Goals [facility] Goals PT [facility] Goals Time Frame: Jun 13, 2020 Sit to Lying (QC): 6 Lying-Sitting on Side/Bed(QC): 6 Sit to Stand (QC): 6 Chair/Asj-vy-Ettiw Xfer(QC): 6 Walk 150 ft (QC): 6 PT Plan Treatment/Plan Treatment Plan: Continue Plan of Care Treatment Plan: Bed Mobility, Education, Functional Activity Lindsey, Functional Strength, Gait, Safety, Therapeutic Exercise, Transfers Treatment Duration: Jun 13, 2020 Frequency: 6 times per week Estimated Hrs Per Day: .25 hour per day Time/GCodes Time In: 1221 Time Out: 1232 Total Billed Treatment Time: 11 Total Billed Treatment 1 visit EX 11 min KEN GRAY PT Jun 09, 2020 13:45
[2020-06-09 16:25] VITALS: BP 112/67
[2020-06-09] MEDS: MELATONIN 3 MG TABLET PO PRN (20:40)
[2020-06-09] MEDS: APIXABAN 5 MG (ELIQUIS) TABLET PO SCH (20:44)
[2020-06-09] MEDS ORDERED: SOTALOL 80 MG (BETAPACE) TAB PO SCH (21:00)
[2020-06-09] MEDS ORDERED: SIMvastatin 20 MG (ZOCOR) TAB PO SCH (21:00)
[2020-06-09 23:40] VITALS: BP 114/50
[2020-06-10 04:12] VITALS: BP 144/65
[2020-06-10 04:44] LABS: ABG BASE EXCESS 3.3 MMOL/L (-2.5-2.5); ABG OXYGEN SATURATION 95 % (94-100); ABG PCO2 41 MMHG (35-45); ABG PH 7.44 (7.37-7.43); ABG PO2 79 MMHG (79-93); ABG TCO2 28.5 MMOL/L (21.0-31.0)
[2020-06-10 04:45] LABS: INSPIRED O2 80%; PATIENT TEMP NOT INDICATED; VENTILATOR NO
[2020-06-10 05:45] LABS: BASOPHILS % (AUTO) 0 % (0-10); EOSINOPHILS % (AUTO) 0 % (0-10); HEMATOCRIT 45 % (40-54); HEMOGLOBIN 14.7 g/dL (13.3-17.7); LYMPHOCYTES # (AUTO) 0.1 10^3/uL (1.0-4.0); LYMPHOCYTES % (AUTO) 1 % (12-44); MEAN CORPUSCULAR HEMOGLOBIN 30 pg (25-34); MEAN CORPUSCULAR HGB CONC 33 g/dL (32-36); MEAN CORPUSCULAR VOLUME 91 fL (80-99); MEAN PLATELET VOLUME 10.5 fL (9.0-12.2); MONOCYTES # (AUTO) 0.5 10^3/uL (0.0-1.0); MONOCYTES % (AUTO) 8 % (0-12); NEUTROPHILS % (AUTO) 90 % (42-75); PLATELET COUNT 182 10^3/uL (130-400); WHITE BLOOD COUNT 6.6 10^3/uL (4.3-11.0)
[2020-06-10 05:58] VITALS: BP 149/67
[2020-06-10] MEDS: RT-ALBUTEROL INHALER HFA (VENTOLIN HFA) 18 GM IH SCH (05:58)
[2020-06-10 06:00] LABS: ALBUMIN 2.7 GM/DL (3.2-4.5); CHLORIDE 111 MMOL/L (98-107); POTASSIUM 4.1 MMOL/L (3.6-5.0); SODIUM 148 MMOL/L (135-145)
--- NOTE | 2020-06-10 06:00 | NUR ---
Timeline note: 2245 - Notified RT that pt stats are at 86% on Vapo 35L/70% while pt is sleeping. This RN was instructed by RT to turn pt up to 80% and monitor. 2345 - VS taken; O2 Sats are 95% on vapo 35L / 80%. 0200 - RT assessed pt and INCREASED VAPO TO 40L AND 90% FOR SAT >90%. 0345 - Pt was getting out of bed, went to pt room. Checked saturation, pt O2 stats are between 84%-87% on 40L and 90%. Notified RT, was given instructions to turn to 100%, get orders for BIPAP and she will be down shortly with a BIPAP . 0354 - Notified Dr. Card of situation. Received orders to start BIPAP, get an ABG 30 minutes after BIPAP is started, and notify Chemical Laboratory Technician if there is a bed available to transfer pt to ICU 0400 - BIPAP started 0415 - Pt O2 sat at 95% on BIPAP at 100% 0430 - ABG taken 0500 - Notified Dr. Card of ABG results 0530 - Transferred pt to ICU 11, report given to OMER Arrington
[2020-06-10 06:01] LABS: CALCIUM 7.9 MG/DL (8.5-10.1)
[2020-06-10 06:02] LABS: GLUCOSE 102 MG/DL (70-105); TOTAL PROTEIN 5.1 GM/DL (6.4-8.2)
[2020-06-10 06:03] LABS: CARBON DIOXIDE 25 MMOL/L (21-32)
[2020-06-10 06:04] LABS: BILIRUBIN,TOTAL 2.7 MG/DL (0.1-1.0)
[2020-06-10 06:05] VITALS: BP 149/67
[2020-06-10 06:05] LABS: ALKALINE PHOSPHATASE 65 U/L (40-136)
[2020-06-10 06:06] LABS: CREATININE SERUM 0.69 MG/DL (0.60-1.30); GFR ESTIMATED > 60
[2020-06-10 06:07] LABS: BUN/CREATININE RATIO 51
--- NOTE | 2020-06-10 06:07 | NUR ---
Pt moved to [facility]11. Report given to OMER Arrington.
[2020-06-10 06:09] LABS: ALANINE AMINOTRANSFERASE 23 U/L (0-55)
--- NOTE | 2020-06-10 06:45 | NUR ---
Notified Femi (Daughter in law and point person) that pt is in CU11. All questions answered.
--- NOTE | 2020-06-10 07:12 | Pulmonary Progress Note ---
MAURISIO GONZALEZ,MED STUDENT 06/10/20 0712: Subjective Date Seen by a Provider: Jun 10, 2020 Time Seen by a Provider: 07:00 Subjective/Events-last exam Patient's O2 sats were found to be 86% on vapotherm at 70% FiO2 at 35L while he was sleeping last night. He was eventually increased to 90% FiO2 at 40L, and his sats were between 84-87%, so he was switched to BIPAP. This morning his O2 sat was 95% on BIPAP at 100%, and he was transferred back to the ICU. Sepsis Event Evaluation Height, Weight, BMI Height: '" Weight: lbs. oz. kg; 20.30 BMI Method: Exam Exam Vital Signs Date Time Temp Pulse Resp B/P (MAP) Pulse Ox O2 Delivery O2 Flow Rate FiO2 06/10/20 06:05 60 35 149/67 (94) 91 NIV Bilevel 100.00 06/10/20 05:58 60 29 93 90.00 06/10/20 04:12 36.1 61 24 144/65 (91) 94 NIV Bilevel 100.00 06/10/20 04:08 60 22 94 100.00 06/10/20 01:59 86 Vapotherm 35.00 80 06/09/20 23:40 36.1 60 20 114/50 (71) 94 Vapotherm 35.00 80.00 06/09/20 23:00 60 06/09/20 21:39 90 Vapotherm 35.00 70 06/09/20 20:36 94 Vapotherm 35.00 80 06/09/20 18:38 98 Vapotherm 35.00 80 06/09/20 16:25 35.9 79 20 112/67 (82) 90 Vapotherm 35.00 80.00 06/09/20 14:44 91 Vapotherm 35.00 80 06/09/20 11:03 94 Vapotherm 40.00 90 06/09/20 08:00 96 Vapotherm 40.00 90 06/09/20 07:54 35.5 80 22 120/57 (78) 96 Vapotherm 40.00 90.00 I & O 06/10/20 07:00 Intake Total 690 ml Balance 690 ml Height & Weight Height: '" Weight: lbs. oz. kg; 20.30 BMI Method: General Appearance: Chronically ill, Other (Confused) HEENT: Normal ENT Inspection Neck: Supple Respiratory: Normal Breath Sounds, No Accessory Muscle Use, No Respiratory Distress Cardiovascular: Regular Rate, Rhythm Capillary Refill: Less Than 3 Seconds Extremity: Other (Cachectic) Neurologic/Psychiatric: Alert, Disoriented Skin: Warm/Dry Lymphatic: No Adenopathy Results Lab Laboratory Tests 06/10/20 05:25 Assessment/Plan Assessment/Plan COVID-19 PNA with acute respiratory distress -currently on BIPAP at 100% FiO2 -discussed possible need for mechanical ventilation with patient -on Decadron, s/p convalescent plasma and remdesivir CELSO RO DO 06/10/20 0742: Exam Exam General Appearance: Anxious, Chronically ill HEENT: Normal ENT Inspection Neck: Supple Respiratory: No Accessory Muscle Use, No Respiratory Distress, Decreased Breath Sounds Cardiovascular: Regular Rate, Rhythm Gastrointestinal: non tender, soft Extremity: Normal Capillary Refill, Normal Inspection Neurologic/Psychiatric: Alert Skin: Warm/Dry Lymphatic: No Adenopathy Assessment/Plan Assessment/Plan COVID-19 PNA with acute respiratory distress (ARDS) -currently on BIPAP at 100% FiO2 -discussed possible need for mechanical ventilation with patient -on Decadron, s/p convalescent plasma and remdesivir -Labs and CXR reviewed -Check BNP and DDIMER Hypernatremia -Monitor Confusion/Metabolic encephalopathy -Monitor Afib -Monitor -Pt is on Eliquis DVT/GI ppx -DVT/GI ppx MAURISIO GONZALEZ MED STUDENT Jun 10, 2020 07:12 CELSO RO DO Jun 10, 2020 07:42
[2020-06-10] MEDS: inSUlin ASPART (NovoLOG) 1 UNIT/0.01 ML (CHARGE PER UNIT) SC SCH ×2 (07:17→16:32)
--- NOTE | 2020-06-10 07:59 | Physical Therapy Progress Note ---
Therapy Progress Note Patient transferred to ICU due to increase in pulmonary demand. PT will consult with RN on POC. Will require new orders. KEN GRAY PT Jun 10, 2020 07:59
[2020-06-10] MEDS ORDERED: SOTALOL 80 MG (BETAPACE) TAB PO SCH (09:00)
[2020-06-10] MEDS: APIXABAN 5 MG (ELIQUIS) TABLET PO SCH (09:01)
[2020-06-10] MEDS: SENNA W/DOCUSATE (SENOKOT S) TABLET PO SCH (09:01)
[2020-06-10] MEDS: PANTOPRAZOLE 40 MG (PROTONIX) VIAL IV SCH (09:01)
[2020-06-10] MEDS: LORazepam INJ 2 MG/ML (ATIVAN) VIAL IVP PRN ×3 (09:02→17:50)
[2020-06-10] MEDS ORDERED: fentaNYL DRIP PRE-MIX 250 ML IV ONE (09:42)
[2020-06-10] MEDS ORDERED: PROPOFOL DRIP (ICU) 100 ML IV ONE (09:42)
--- NOTE | 2020-06-10 09:46 | Physical Therapy Progress Note ---
Therapy Progress Note Hold per RN due to decreased pulmonary status. PT will continue to monitor patient status. KEN GRAY PT Jun 10, 2020 09:46
--- NOTE | 2020-06-10 09:53 | NUR ---
0935- Dr Gusman called Femi, Daughter in law. Update given regarding condition. Daughter in law and son have decided that patient would want to be intubated if he could no longer survive on bipap. Dr Gusman informed family of risk and benefits. Family stated they understand and wish to proceed. 0953: Dr Gusman and Rt at bedside. 4mg of versed given ivp 0955: 5ml of propofol given along with 50mcg of rocuronium 0956: Pt intubated by Dr Gusman, 8.0 Ett, 27 at the lip, positive color change, restraints applied 0957: obtained order for picc line 0957: cxr ordered for tube placement, 16fr og placed verified placement with air bolus 1005: Pt had change in rhythm. Pt in PEA, CPR started, code blue called, unable to obtain cxr 1007: 1mg of Epi given 1010:pulse check, no pulse, cpr resumed, 1 mg of epi given 1011: ROSC, v-tach, preparing to charge for shock 1012:150mg bolus of amiodarone given ivp, pt in sinus tach, no shock given, pulse thready 1013: 0.5mg Epi given, NS IV Bolus started 1014:1 amp sodium bicarb given, Dr Harper at bedside for central line and a-line placement 1017:1 amp sodium bicarb given 1018: Levo gtt started at 0.1mcg 1025: Amiodarone gtt started 1027: cxr taken at this time, large right sided pneumo, Dr Gusman doing needle decompression. 1030: left femoral central line started by dr harper, sutured into place 1034: Dr gusman placed thoravent, placed to suction, constant bubbling noted. 1038:Dr Harper attempted to start left radial a-line, unsuccessful. , 16 fr beckham inserted 1052: Dr Harper placed 20g right radial a line, good waveform noted 1100: Dr gusman and domingo spoke with son on the phone, update given, he is on his way to the hospital now 1153: Dr Gusman spoke with family regarding condition. Family wishes to see patient, then will move comfort care. Orders obtained from Dr Gusman. 1215: Domingo and Son, Floyd, at bedside. 1316: Bill ready for patient to be terminally extubated, RT jaxson at bedside. Morphine and Ativan given for comfort 1319: Pt terminally extubated. Bill at bedside. All questions and concerns answered at this time. Restraints dc'd, all meds stopped, beckham and thoravent left in place per Dr Gusman.
[2020-06-10] MEDS ORDERED: NS IV 1000 ML 1,000 ML ONE (09:55)
--- NOTE | 2020-06-10 10:00 | NUR ---
Response to code: Met pt's daughter in law (Nannette) and twin daughters (16 years old) at ER entrance and accompanied them to the ICU waiting area. Met pt's son (Hadley ESCOBEDO, at the ER entrance 45 minutes later to accompany him to the waiting area where Dr. Gusman and OMER Davidson updated the family. The son stated his previous conversations with the patient informed his decision to place the patient on comfort care, as the patient expressed he did not want to live in a chcf or require life support. The Bait Packer offered one on one support to the pt's daughter in law through active listening. The pt and his family are [employer]. The daughter shared her concerns and stressors they felt while the patient was in the hospital and they could not visit. Bait Packer also engaged is supportive communication with pt's daughters by facilitating storytelling about the patient and sharing about their grief. 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 The family expressed concerns for the pt's , whom they are waiting to speak to in person about the patient's condition.
[2020-06-10] MEDS ORDERED: NOREPINEPHRINE 4 MG/250 ML 250 ML IV ONE (10:11)
[2020-06-10] MEDS ORDERED: AMIODARONE 450 MG/9 ML (CORDARONE) VIAL IV ONE (10:14)
[2020-06-10] MEDS ORDERED: D5W 100 ML IVPB 100 ML IV ONE (10:15)
[2020-06-10] MEDS ORDERED: D5W IV SOLUTION (EXCEL) 250 ML IV ONE (10:16)
[2020-06-10 10:33] LABS: BASOPHILS % (AUTO) 0 % (0-10); EOSINOPHILS % (AUTO) 0 % (0-10); HEMATOCRIT 51 % (40-54); HEMOGLOBIN 16.3 g/dL (13.3-17.7); LYMPHOCYTES # (AUTO) 1.9 10^3/uL (1.0-4.0); LYMPHOCYTES % (AUTO) 19 % (12-44); MEAN CORPUSCULAR HEMOGLOBIN 29 pg (25-34); MEAN CORPUSCULAR HGB CONC 32 g/dL (32-36); MEAN CORPUSCULAR VOLUME 91 fL (80-99); MEAN PLATELET VOLUME 10.5 fL (9.0-12.2); MONOCYTES # (AUTO) 0.6 10^3/uL (0.0-1.0); MONOCYTES % (AUTO) 6 % (0-12); NEUTROPHILS # (AUTO) 7.5 10^3/uL (1.8-7.8); NEUTROPHILS % (AUTO) 74 % (42-75); PLATELET COUNT 195 10^3/uL (130-400); WHITE BLOOD COUNT 10.2 10^3/uL (4.3-11.0)
[2020-06-10 10:48] LABS: ALBUMIN 2.7 GM/DL (3.2-4.5); CHLORIDE 111 MMOL/L (98-107); POTASSIUM 4.2 MMOL/L (3.6-5.0); SODIUM 149 MMOL/L (135-145)
[2020-06-10 10:49] LABS: CALCIUM 7.8 MG/DL (8.5-10.1)
[2020-06-10 10:50] LABS: GLUCOSE 90 MG/DL (70-105); TOTAL PROTEIN 5.6 GM/DL (6.4-8.2)
[2020-06-10 10:52] LABS: BILIRUBIN,TOTAL 3.1 MG/DL (0.1-1.0); CARBON DIOXIDE 24 MMOL/L (21-32)
[2020-06-10 10:54] LABS: ALKALINE PHOSPHATASE 77 U/L (40-136); CREATININE SERUM 0.88 MG/DL (0.60-1.30); GFR ESTIMATED > 60
[2020-06-10 10:55] LABS: BUN/CREATININE RATIO 44
[2020-06-10 10:57] LABS: ALANINE AMINOTRANSFERASE 29 U/L (0-55)
--- NOTE | 2020-06-10 11:10 | Pulmonary Progress Note ---
Standard Progress Note Progress Notes Date Seen by Provider: Jun 10, 2020 Time Seen by Provider: 10:00 Called to bedside secondary to worsening acute respiratory distress while on BiPAP. Pt was transferred up here from 4th floor this morning. I discussed with family over the phone and they want everything done including intubation. Assessment & Plan COVID-19 PNA with acute respiratory distress (ARDS) -currently on BIPAP at 100% FiO2 -discussed possible need for mechanical ventilation with patient -on Decadron, s/p convalescent plasma and remdesivir -Labs and CXR reviewed -Check BNP and DDIMER Hypernatremia -Monitor Confusion/Metabolic encephalopathy -Monitor Afib -Monitor -Pt is on Eliquis DVT/GI ppx -DVT/GI ppx Critical Care: Critically Ill Patient CELSO RO DO Jun 10, 2020 11:10
--- NOTE | 2020-06-10 11:20 | Diagnostic Imaging Report ---
INDICATION: Intubation. TECHNIQUE: Single view chest at 10:22 AM. CORRELATION STUDY: 06/08/2020. FINDINGS: An endotracheal tube has been placed with the tip projecting at the level of the clavicles. A gastric tube has also been placed and passes below the left hemidiaphragm. There has been development of a large, approximately 50% left-sided pneumothorax. There is also suggestion of slight asymmetric lucency at the right costophrenic angle which is indeterminate. Multilobe infiltrate is again demonstrated. The heart size and mediastinal configuration are generally stable. IMPRESSION: 1. Interval intubation. Gastric tube has also been placed. 2. Development of a rather sizable left-sided pneumothorax. 3. Findings also positive for a small right basilar pneumothorax. 4. Extensive bilateral pulmonary infiltrates. 5. The findings have been discussed with Dr. Gusman at 11:14 AM. Dictated by: Dictated on workstation # [id number]
--- NOTE | 2020-06-10 11:21 | Pulmonary Progress Note ---
Standard Progress Note Progress Notes Time Seen by Provider: 11:15 UPDATE: After intubation. Pt CODED chest compressions were done and epi was given per ACLS protocol. CXR after intubation shows large left PTX. Emergent chest tube was placed on left. CXR also shows a small right PTX however this could be air from left side. I talked and updated family on pt's clinical condition. I answered all questions to the best of my ability. I talked with family again once other family members arrived. I answered all questions to the best of my ability. 120min spent with patient and icu team not including this morning's progress note or time spent placing chest tube. Assessment & Plan COVID-19 PNA with acute respiratory distress (ARDS) -currently on BIPAP at 100% FiO2 -discussed possible need for mechanical ventilation with patient -on Decadron, s/p convalescent plasma and remdesivir -Labs and CXR reviewed -Check BNP and DDIMER Hypernatremia -Monitor Confusion/Metabolic encephalopathy -Monitor Afib -Monitor -Pt is on Eliquis DVT/GI ppx -DVT/GI ppx Critical Care: Critically Ill Patient Time spent with patient (mins): 120 Focused Exam Lactate Level 06/10/20 10:50: Lactic Acid Level Laboratory Tests Test 06/10/20 10:50 CELSO RO DO Jun 10, 2020 11:21
--- NOTE | 2020-06-10 11:21 | Diagnostic Imaging Report ---
INDICATION: Post CODE BLUE, chest tube placement Frontal chest obtained at 1056 a.m. and compared with same day at 1022 a.m. ET tube and NG tube are unchanged. There is cardiomegaly with post sternotomy change and indwelling pacemaker device. External pacing leads are visualized. There is significant improvement in the left pneumothorax compared to earlier this morning, with small caliber chest tube overlying the left side. There is a smaller right basilar and lateral pneumothorax which is slightly increased compared to earlier today. There is unchanged infiltrate in the left midlung and base as well as in the right base. IMPRESSION: Improvement in left pneumothorax compared to the prior study of earlier today, with minimal residual laterally. Overlying new small-caliber chest tube is seen. There is some bibasilar infiltrate. There is a small right lateral basal pneumothorax which is slightly increased compared to earlier today. Dictated by: Dictated on workstation # [id number]
[2020-06-10] MEDS ORDERED: morphine INJ 10 MG/ML 1ML (SYR OR VIAL) IVP STA (11:54)
[2020-06-10] MEDS ORDERED: LORazepam INJ 2 MG/ML (ATIVAN) VIAL IVP ONE (12:00)
--- NOTE | 2020-06-10 12:14 | NUR ---
PALLIATIVE CARE RN has spent a good deal of the morning with patient after a CODE situation, now intubated with chest tube, and then in discussion with family with and without Dr. Gusman. Family has ultimately made the decision to make him CCMO and they are being allowed to visit prior to extubation. Son indicated that he had a long talk with his father prior to this acute illness, where he learned that his "would not want any of this". Will continue to follow and offer support as needed.
[2020-06-10] MEDS ORDERED: ROCURONIUM 10 MG/ML 5 ML SYRINGE IV ONE (12:22)
[2020-06-10] MEDS ORDERED: fentaNYL INJECTION 100 MCG/2 ML AMP IV ONE (12:22)
[2020-06-10] MEDS ORDERED: MIDAZOLAM 5 MG/5 ML (VERSED) VIAL IJ ONE (12:22)
--- NOTE | 2020-06-10 13:25 | NUR ---
Patient has been undergone compassionate extubation. Son is at bedside and has no need at this time.
--- NOTE | 2020-06-10 14:20 | Pulmonary Procedures ---
Pulmonary Procedures Date of Procedure Date of Service: Jun 10, 2020 Reason for Intubation: acute respiratory failure Time of Intubation: 10:00 Intubation Method: orotracheal Tube Size: 8 Medications: Fentanyl, Propofol, Rocuronium, Versed Positive End Tide CO2: Yes Breath Sounds after Intubation: bilateral-equal Intubation Complications: no complications Post Intubation Xray: Yes CELSO RO DO Jun 10, 2020 14:20
--- NOTE | 2020-06-10 14:22 | Pulmonary Procedures ---
Pulmonary Procedures Date of Procedure Date of Service: Jun 10, 2020 Chest Tube : Chest Tube Position: Left Upper (acute left PTX ) Chest Tube Location: Mediastinal Size of Czech Tube (cm): 14 Chest Tube Procedure: betadine prep, sterile drapes applied, sterile dressing applied Anton of Air Rooks: Yes Number of Attempts: 1 Tube Drainage: see nurses notes Tube Sutured to Skin: Yes Post Procedure CXR?: Yes CELSO RO DO Jun 10, 2020 14:22
[2020-06-10] MEDS ORDERED: AMIODARONE (BOLUS) 150 MG/3 ML IV ONE (15:21)
[2020-06-10] MEDS ORDERED: NS 1000 ML IV BAG IV ONE (15:21)
[2020-06-10] MEDS ORDERED: EPINEPHrine 0.1 MG/ML 10 ML (HOSPIRA) SYR IJ ONE (15:21)
[2020-06-10] MEDS ORDERED: SODIUM BICARB 8.4% 50 MEQ/50 ML (ABBOTT) SYR INJ ONE (15:21)
[2020-06-10] MEDS: morphine INJ 4 MG/ML 1 ML (VIAL/SYRINGE) IVP PRN ×2 (15:31→17:50)
--- NOTE | 2020-06-10 15:33 | NUR ---
Patient is holding his own and will be transferred to the 4th floor for EOL care. I spoke with DIL and grand-daughters and explained his current status and the need to transfer to 4th floor. They have opted to go home at this time.
--- NOTE | 2020-06-10 18:45 | NUR ---
Report given to Deanna TELLO.
--- NOTE | 2020-06-10 18:45 | NUR ---
184: Report given to OMER Huerta 1900: right radial a-line dc'd at this time.
--- NOTE | 2020-06-10 20:00 | NUR ---
Pt to floor at this time on comfort care, room 401, accompanied by 2 ICU techs and pt's son. resting in bed unable to respond to voice at this time, pt noted to have labored breathing with respirations at 18. Will continue to monitor and make pt comfortable.
--- NOTE | 2020-06-10 20:02 | Consultation - Surgery ---
History of Present Illness History of Present Illness Patient Consulted On(siddharth/time) 06/10/20 10:15 Date Seen by Provider: Jun 10, 2020 Time Seen by Provider: 10:15 History of Present Illness Consult requested by Dr. Gusman for line placement during Code blue. Patient is an 84 year old male who was just intubated due to acute respiratory failure. He then had code blue. I was requested to urgently place central and arterial line. Patient had ROSC. Patient intubated. Unable to provide any information. Patient on Eliquis. Allergies and Home Medications Allergies Coded Allergies: No Known Drug Allergies (Unverified , 05/31/20) Home Medications Apixaban 5 Mg Tablet, 5 MG PO BID, (Reported) Cefuroxime Axetil 250 Mg Tablet, 250 MG PO BID, (Reported) FILLED 06-01-2020 #20/10 DAY SUPPLY Cetirizine HCl 10 Mg Tablet, 5 MG PO DAILY, (Reported) TAKES OF A 10MG TAB Multivit-Min/FA/Lycopene/Lut 1 Each Tablet, 1 EACH PO DAILY, (Reported) Simvastatin 20 Mg Tablet, 20 MG PO HS, (Reported) Sotalol HCl 80 Mg Tablet, 80 MG PO DAILY, (Reported) Sotalol HCl 80 Mg Tablet, 120 MG PO HS, (Reported) TAKES 1 & (80MG) TABS Patient Home Medication List Home Medication List Reviewed: Yes Past Ehtzvps-Cblrkq-Hcdoxr Hx Patient Social History Alcohol Use: Denies Use Recreational Drug Use: No Smoking Status: Never a Smoker Recent Foreign Travel: No Contact w/Someone Who Travel: No Recent Infectious Disease Expo: No Immunizations Up To Date Date of Influenza Vaccine: Apr 30, 2020 Seasonal Allergies Seasonal Allergies: No Surgeries History of Surgeries: Yes Surgeries: Pacemaker Respiratory History of Respiratory Disorde: No Cardiovascular History of Cardiac Disorders: Yes Cardiac Disorders: Irregular Heartbeat Neurological History of Neurological Disord: Yes Neurological Disorders: Dementia Genitourinary History of Genitourinary Disor: No Gastrointestinal History of Gastrointestinal Di: No Musculoskeletal History of Musculoskeletal Dis: No Endocrine History of Endocrine Disorders: No HEENT History of HEENT Disorders: No Cancer History of Cancer: No Psychosocial History of Psychiatric Problem: No Integumentary History of Skin or Integumenta: No Reviewed Nursing Assessment Reviewed/Agree w Nursing PMH: Yes Family Medical History Significant Family History: No Pertinent Family Hx Review of Systems-General ROS-Unable to Obtain: unable to obtain-intubated Physical Exam-General Problems Physical Exam Vital Signs Vital Signs - First Documented 06/04/20 06/04/20 04:30 08:32 Temp 36.4 Pulse 61 Resp 20 B/P (MAP) 149/71 (97) Pulse Ox 91 O2 Delivery High Flow N/C O2 Flow Rate 5.00 FiO2 80 Capillary Refill : Less Than 3 Seconds General Appearance: thin, other (intubated) HEENT: normal ENT inspection Neck: normal inspection Respiratory: other (equal chest rise, no trauma evident) Cardiovascular: regular rate, rhythm, no edema Gastrointestinal: soft, no organomegaly Rectal: deferred Extremities: normal inspection, no pedal edema Neurologic/Psychiatric: No alert, No oriented x 3 (intubated) Skin: warm/dry, cyanosis Lymphatic: no adenopathy Data Review Labs Laboratory Tests 06/09/20 20:32: Glucometer 119H 06/10/20 04:33: Blood Gas Puncture Site NOT INDICATED, Blood Gas Patient Temperature NOT INDICATED, Arterial Blood pH 7.44H, Arterial Blood Partial Pressure CO2 41, Arterial Blood Partial Pressure O2 79, Arterial Blood HCO3 27, Arterial Blood Total CO2 28.5, Arterial Blood Oxygen Saturation 95, Arterial Blood Base Excess 3.3H, Wood Test NA, Blood Gas Ventilator Setting NO, Blood Gas Inspired Oxygen 80% 06/10/20 05:25: White Blood Count 6.6, Red Blood Count 4.96, Hemoglobin 14.7, Hematocrit 45, Mean Corpuscular Volume 91, Mean Corpuscular Hemoglobin 30, Mean Corpuscular Hemoglobin Concent 33, Red Cell Distribution Width 14.2, Platelet Count 182, Mean Platelet Volume 10.5, Immature Granulocyte % (Auto) 1, Neutrophils (%) (Auto) 90H, Lymphocytes (%) (Auto) 1L, Monocytes (%) (Auto) 8, Eosinophils (%) (Auto) 0, Basophils (%) (Auto) 0, Neutrophils # (Auto) 6.0, Lymphocytes # (Auto) 0.1L, Monocytes # (Auto) 0.5, Eosinophils # (Auto) 0.0, Basophils # (Auto) 0.0, Immature Granulocyte # (Auto) 0.1, D-Dimer 1.15H, Sodium Level 148H, Potassium Level 4.1, Chloride Level 111H, Carbon Dioxide Level 25, Anion Gap 12, Blood Urea Nitrogen 35H, Creatinine 0.69, Estimat Glomerular Filtration Rate > 60, BUN/Creatinine Ratio 51, Glucose Level 102, Calcium Level 7.9L, Corrected Calcium 8.9, Total Bilirubin 2.7H, Aspartate Amino Transf (AST/SGOT) 30, Alanine Aminotransferase (ALT/SGPT) 23, Alkaline Phosphatase 65, B-Type Natriuretic Peptide 328.7H, Total Protein 5.1L, Albumin 2.7L 06/10/20 10:20: White Blood Count 10.2, Red Blood Count 5.63H, Hemoglobin 16.3, Hematocrit 51, Mean Corpuscular Volume 91, Mean Corpuscular Hemoglobin 29, Mean Corpuscular Hemoglobin Concent 32, Red Cell Distribution Width 14.3, Platelet Count 195, Mean Platelet Volume 10.5, Immature Granulocyte % (Auto) 2, Neutrophils (%) (Auto) 74, Lymphocytes (%) (Auto) 19, Monocytes (%) (Auto) 6, Eosinophils (%) (Auto) 0, Basophils (%) (Auto) 0, Neutrophils # (Auto) 7.5, Lymphocytes # (Auto) 1.9, Monocytes # (Auto) 0.6, Eosinophils # (Auto) 0.0, Basophils # (Auto) 0.0, Immature Granulocyte # (Auto) 0.2H, D-Dimer 2.24H, Sodium Level 149H, Potassium Level 4.2, Chloride Level 111H, Carbon Dioxide Level 24, Anion Gap 14, Blood Urea Nitrogen 39H, Creatinine 0.88, Estimat Glomerular Filtration Rate > 60, BUN/Creatinine Ratio 44, Glucose Level 90, Calcium Level 7.8L, Corrected Calcium 8.8, Total Bilirubin 3.1H, Aspartate Amino Transf (AST/SGOT) 52H, Alanine Aminotransferase (ALT/SGPT) 29, Alkaline Phosphatase 77, Total Protein 5.6L, Albumin 2.7L 06/10/20 10:50: Lactic Acid Level 5.38*H Microbiology 06/04/20 MRSA Screen - Final, Complete MRSA not isolated 06/01/20 Urine Culture - Final, Complete NO GROWTH 06/01/20 Blood Culture - Final, Complete No growth Assessment/Plan Assessment/Plan Assessment/Plan Covid 19 pneumonia acute respiratory failure requiring intubation s/p code blue afib anticoagulation half-way Left pneumothorax- Dr. Gusman placed thoravent Requested to place central line and arterial line. Will place left groin due to on anticoagulation and place arterial line for close monitoring. Placed emergently. Procedure: left femoral vein central line placement and left radial attempted arterial line placement, right radial ultrasound-guided art line placement. Patient left groin was prepped and draped in a sterile fashion left femoral vein was accessed dark nonpulsatile blood was withdrawn. The guidewire was inserted and the needle was removed. The 11 blade scalpel using a small skin incision at the insertion point. The dilator was then advanced over the guidewire and removed. The triple-lumen catheter was then inserted and the wire was removed. All ports were accessed and flushed without difficulty. The triple-lumen catheter was secured in the usual fashion. The areas washed and dried and sterile bandage was applied. The left wrist was prepped and draped in sterile fashion, left radial artery unable to be accessed under ultrasound. The right wrist was then prepped and draped in sterile fashion ultrasound was used to locate the right radial artery under visualization of the ultrasound a 20-gauge art line Aero needle and catheter was used to puncture the right radial artery the wire was inserted and the catheter was then advanced over the wire. Pulsatile blood was present through the catheter and the art line was attached to the catheter. The area was then washed and dried and sterile bandage applied. Clinical Quality Measures DVT/VTE Risk/Contraindication: Risk Factor Score Per Nursin RFS Level Per Nursing on Admit: 4+=Very High TARA COOLEY DO Jun 10, 2020 20:02
--- NOTE | 2020-06-10 20:30 | NUR ---
Son expressed concern that pt's false tooth (#7) is missing. This nurse check Pt's mouth tooth is not in place or anywhere in pt's mouth. arch support technician brought down pt's belonging in a big bag. This RN searched all belongings, including clothing pockets, tooth not found. This RN let the son know that we would search the rooms pt had been in prior to coming to 401. Tooth was never in this room and was never received from ICU. When asking techs if either had had this pt in the past when he was on 4th floor, FANNIE coleman said she had help with him when he was in room 426, and remembers "someone" asking "is this a tooth?" (sitting on the bedside table) and [place] stated it was a tooth. This is the only information I was able to obtain, will let dock supervisor know and ask if ICU nurses know any more information.
[2020-06-10] MEDS: morphine INJ 10 MG/ML 1ML (SYR OR VIAL) IVP PRN ×2 (21:46→23:57)
--- NOTE | 2020-06-11 02:48 | NUR ---
Pts son relayed to this nurse that they would like [facility] in [place], [place] to be Pts home. [address], [place] [id number]
--- NOTE | 2020-06-11 03:45 | NUR ---
Called to pt room at this time by son Floyd Leggett who stated he quit hearing his father breathing. This RN Auscultated for apical heart beat, none detected. Second RN, Priscilla confirmed no apical heart beat through auscultation. Son signed documentation with release of body to [facility] in [facility]. Called [facility] at [phone], no further action required body is released by [facility]. Call placed to [facility] at [phone]. They stated they will "be here shortly."
[2020-06-11] MEDS ORDERED: MAGNESIUM 1 GM/100 ML IVPB 100 ML IV SCH (06:00)
[2020-06-11] MEDS ORDERED: KCL 20 MEQ TAB (K-DUR) PO SCH (06:00)
[2020-06-11] MEDS ORDERED: POTASSIUM CL 10MEQ/50ML IVPB 50 ML IV SCH (06:00)
--- NOTE | 2020-06-11 09:16 | Discharge Summary ---
Discharge Summary Hospital Course Problems/Diagnosis: (1) Pneumonia due to COVID-19 virus Status: Acute Assessment & Plan: Received remdesevir, convalescent plasma and dexamethasone, had worsening or respiratory status ultimately to the point of needing bipap, transferred to ICU smokehouse worker 06/10, and later that morning required intubation and shortly after went into PEA. Pulse was recovered, but condition continued to worsen and family felt he would want comfort measures, he had palliative extubation after family arrived and in the smokehouse worker on 06/11. (2) Confusion Status: Acute Assessment & Plan: 06/05 Per report had some increasing confusion prior to admission but is now severe, suspect delirium due to illness. Head CT on 06/01 ER visit without acute abnormality. Discussed with [id number] Femi via phone this afternoon, will try to minimize sedating medications, have blinds open in the day and keep the room dim at night. 06/09- improved, still has some trouble at times, but this morning is alert and oriented to self, location and reason for hospitalization, has prn antipsychotics ordered, but has not needed since 06/06 (3) Atrial fibrillation Status: Chronic Assessment & Plan: On Eliquis and sotalol at home, not taking oral well initially and was on therapeutic enoxaparin, resumed home meds when he was able to take oral Qualifiers: Qualified Codes: I48.0 - Paroxysmal atrial fibrillation (4) Weakness Status: Acute Assessment & Plan: PT (5) COVID-19 Status: Acute (6) Elevated bilirubin Status: Acute Assessment & Plan: With only mildly elevated AST. Abdominal US showed probable stone at gall bladder neck. Hospital Course Date of Admission: Jun 01, 2020 at 17:10 Admission Diagnosis : Family Physician/Provider: JoyceLocal Physician Date of Discharge: 06/11/20 Discharge Diagnosis: See problem list Hospital Course: Pt admitted with altered mental status and COVID19 pneumonia, had fluctuating course but ultimately required intubation and then palliative extubation and patient several hours later. Labs and Pending Lab Test: Laboratory Tests 06/10/20 10:20: White Blood Count 10.2, Red Blood Count 5.63H, Hemoglobin 16.3, Hematocrit 51, Mean Corpuscular Volume 91, Mean Corpuscular Hemoglobin 29, Mean Corpuscular Hemoglobin Concent 32, Red Cell Distribution Width 14.3, Platelet Count 195, Mean Platelet Volume 10.5, Immature Granulocyte % (Auto) 2, Neutrophils (%) (Auto) 74, Lymphocytes (%) (Auto) 19, Monocytes (%) (Auto) 6, Eosinophils (%) (Auto) 0, Basophils (%) (Auto) 0, Neutrophils # (Auto) 7.5, Lymphocytes # (Auto) 1.9, Monocytes # (Auto) 0.6, Eosinophils # (Auto) 0.0, Basophils # (Auto) 0.0, Immature Granulocyte # (Auto) 0.2H, D-Dimer 2.24H, Sodium Level 149H, Potassium Level 4.2, Chloride Level 111H, Carbon Dioxide Level 24, Anion Gap 14, Blood Urea Nitrogen 39H, Creatinine 0.88, Estimat Glomerular Filtration Rate > 60, BUN/Creatinine Ratio 44, Glucose Level 90, Calcium Level 7.8L, Corrected Calcium 8.8, Total Bilirubin 3.1H, Aspartate Amino Transf (AST/SGOT) 52H, Alanine Aminotransferase (ALT/SGPT) 29, Alkaline Phosphatase 77, Total Protein 5.6L, Albumin 2.7L 06/10/20 10:50: Lactic Acid Level 5.38*H Microbiology 06/04/20 MRSA Screen - Final, Complete MRSA not isolated 06/01/20 Urine Culture - Final, Complete NO GROWTH 06/01/20 Blood Culture - Final, Complete No growth Home Meds Active Reported Zyrtec (Cetirizine HCl) 10 Mg Tablet 5 Mg PO DAILY TAKES OF A 10MG TAB Cefuroxime (Cefuroxime Axetil) 250 Mg Tablet 250 Mg PO BID FILLED 06-01-2020 #20 DAY SUPPLY Centrum Silver Tablet (Multivit-Min/FA/Lycopene/Lut) 1 Each Tablet 1 Each PO DAILY Simvastatin 20 Mg Tablet 20 Mg PO HS Sotalol (Sotalol HCl) 80 Mg Tablet 120 Mg PO HS TAKES 1 & (80MG) TABS Sotalol (Sotalol HCl) 80 Mg Tablet 80 Mg PO DAILY Eliquis (Apixaban) 5 Mg Tablet 5 Mg PO BID Assessment/Pt DC Instructions Patient . Discharge Physical Examination Allergies: Coded Allergies: No Known Drug Allergies (Unverified , 05/31/20) Clinical Quality Measures DVT/VTE Risk/Contraindication: Risk Factor Score Per Nursin RFS Level Per Nursing on Admit: 4+=Very High RAUL GRAY MD Jun 11, 2020 09:16
== END 2020-06-11 06:26 | disposition expired | DRG 177 ==
LOC: EDUNIT# 15:17 → ER 15:18 → 4TH 17:10 → ICU 06-04 06:20 → CSD 06-04 18:00 → ICU 06-08 05:07 → 4TH 06-08 16:15 → ICU 06-10 05:53 → 4TH 06-10 13:16
PROVIDERS: ADMIT Internal Medicine; ATTEND Family Medicine
PROC: XW033E5 Introduction of Remdesivir Anti-infective into Peripheral Vein, Percutaneous Approach, New Technology Group 5 (ICD-10-PCS; principal; 2020-06-01)
PROC: XW13325 Transfusion of Convalescent Plasma (Nonautologous) into Peripheral Vein, Percutaneous Approach, New Technology Group 5 (ICD-10-PCS; 2020-06-02)
PROC: 0BH17EZ Insertion of Endotracheal Airway into Trachea, Via Natural or Artificial Opening (ICD-10-PCS; 2020-06-10)
PROC: 5A09357 Assistance with Respiratory Ventilation, Less than 24 Consecutive Hours, Continuous Positive Airway Pressure (ICD-10-PCS; 2020-06-10)
PROC: 0W9B30Z Drainage of Left Pleural Cavity with Drainage Device, Percutaneous Approach (ICD-10-PCS; 2020-06-10)
DX: U07.1 COVID-19 (principal); J12.89 Other viral pneumonia; J80 Acute respiratory distress syndrome; G93.41 Metabolic encephalopathy; E87.0 Hyperosmolality and hypernatremia; I46.9 Cardiac arrest, cause unspecified; R53.1 Weakness; F03.90 Unspecified dementia, unspecified severity, without behavioral disturbance, psychotic disturbance, mood disturbance, and anxiety; Z51.5 Encounter for palliative care; I48.91 Unspecified atrial fibrillation; R19.7 Diarrhea, unspecified; Z95.0 Presence of cardiac pacemaker; Z91.81 History of falling; Z79.01 Long term (current) use of anticoagulants
CPT/HCPCS: 36415; 71045; 76705; 80053; 81000; 82805; 82962; 83605; 83880; 84145; 85007; 85025; 85027; 85045; 85055; 85379; 85610; 85730; 86141; 86900; 86901; 87040; 87081; 87088; 87635; 87804; 94640; 94660; 94760